=== PATIENT | female | born 1995 | race American Indian/Alaskan Native ===

== ENCOUNTER 2020-03-27 17:59 | Inpatient (IN) | payer MEDICAID, OTHER ==
[2020-03-27] MEDS ORDERED: Penicillin G Potassium 5,000,000 Unit Vial ONE (18:07)
[2020-03-27] MEDS ORDERED: Penicillin G Potassium 5 MILLUNITS in Sodium Chloride 0.9% 100 ML IV STA (18:14)
[2020-03-27] MEDS ORDERED: Betamethasone Acetate/Betamethasone Sod Phosphate 30 MG/5 ML MDV IM STA (18:14)
[2020-03-27] MEDS ORDERED: Misoprostol 400 MCG (4 X 100 MCG TAB) RECTAL PRN (18:16)
[2020-03-27] MEDS ORDERED: Lactated Ringers 1,000 ML IV ONE (18:16)
[2020-03-27] MEDS ORDERED: Ondansetron 4 MG/2 ML SDV IVPUSH PRN (18:16)
[2020-03-27] MEDS ORDERED: Sodium Chloride 0.9% 10 ML Syringe FLUSH PRN ×2 (18:16→19:22)
[2020-03-27] MEDS ORDERED: Lidocaine 1% 30 ML SDV INJECT PRN (18:16)
[2020-03-27] MEDS ORDERED: Carboprost Tromethamine 250 MCG/1 ML Amp IM PRN (18:16)
[2020-03-27] MEDS ORDERED: Tranexamic Acid 1,000 MG in Sodium Chloride 0.9% 100 ML IV PRN (18:16)
[2020-03-27] MEDS ORDERED: Methylergonovine 0.2 MG/1 ML Amp IM PRN (18:16)
[2020-03-27] MEDS ORDERED: Lactated Ringers 1,000 ML IV SCH (18:30)
[2020-03-27] MEDS ORDERED: Oxytocin/Normal Saline 30 UNIT/500 ML BAG IV SCH (18:30)
--- NOTE | 2020-03-27 19:09 | US ---
PROCEDURE INFORMATION: Exam: US , Limited Exam date and time: 03/27/2020 6:03 PM Age: 24 years old Clinical indication: Condition or disease; Lmp or gestational age (weeks): 35w; Other: PT in active labor; 2nd ; ; Additional info: No care. PT in active labor, provider needed presentation, placenta and growth TECHNIQUE: Imaging protocol: Real-time ultrasound of the maternal uterus with image documentation. Exam focused on the clinical indication. COMPARISON: No relevant prior studies available. FINDINGS: Gestation: Single live intrauterine fetus. Presentation: Cephalic Placenta: Placenta is posterior and appears intact. BIOMETRY: Estimated due date (AUA): 05/03/2020 Estimated weight: 2402 grams IMPRESSION: Single live intrauterine fetus with a sonographic gestational age of 34 weeks 5 days. CANDY is 05/03/2020. Please see above for additional findings.
[2020-03-27] MEDS ORDERED: Measles, Mumps & Rubella Vaccine 0.5 ML SDV SUBCUT ONE (19:22)
[2020-03-27] MEDS ORDERED: Zolpidem 5 MG Tab PO PRN (19:22)
[2020-03-27] MEDS ORDERED: Benzocaine/Menthol 20%-0.5% Spray 56 GM Canister TOP PRN (19:22)
[2020-03-27] MEDS ORDERED: Simethicone 80 MG Tab.Chew PO PRN (19:22)
[2020-03-27] MEDS ORDERED: Diphtheria,Pertussis(Acell),Tetanus Vaccine 0.5 ML SDV IM ONE (19:22)
[2020-03-27] MEDS ORDERED: Oxytocin 10 Units/1 ML SDV IM PRN (19:22)
[2020-03-27] MEDS: Acetaminophen 325 MG Tab PO PRN (19:56)
[2020-03-27] MEDS: Ibuprofen 800 MG Tab PO PRN (19:59)
[2020-03-27] MEDS: Docusate Sodium 100 MG Cap PO PRN (20:00)
[2020-03-28] MEDS: Ibuprofen 800 MG Tab PO PRN ×3 (05:06→21:33)
--- NOTE | 2020-03-28 07:58 | DEL ---
DATE: 03/27/2020 PREOPERATIVE DIAGNOSES: 1. Intrauterine , 34-5/7 weeks by ultrasound today with posterior placenta. 2. No care. 3. Positive urine drug screen for methamphetamines, amphetamines, and THC. 4. Not a transfer candidate. 5. Active labor. 6. Advanced cervical dilation being 7+ cm. 7. Group B Streptococcus unknown within 1 dose of penicillin given. 8. contractions. Betamethasone given x1 on date of admission. 9. Gestational thrombocytopenia suspected with platelets of 95,000. 10.-0-0-1. POSTOPERATIVE DIAGNOSES: 1. Intrauterine , 34-5/7 weeks by ultrasound today with posterior placenta, delivered. 2. No care. 3. Positive urine drug screen for methamphetamines, amphetamines, and THC. 4. Not a transfer candidate. 5. Active labor. 6. Advanced cervical dilation being 7+ cm. 7. Group B Streptococcus unknown within 1 dose of penicillin given. 8. contractions. Betamethasone given x1 on date of admission. 9. Gestational thrombocytopenia suspected with platelets of 95,000. 10.-0-0-1. PROCEDURE PERFORMED: Spontaneous vaginal delivery. RN DISEASE MANAGEMENT: Toribio Lawrence MS-4 ANESTHESIA/ANALGESIA: The patient did receive nitrox in the late first and second stage of labor. ESTIMATED BLOOD LOSS: 200 mL. FINDING: Male. score and weight pending. SUMMARY OF EVENTS: The patient is a 24-year-old, G2, P1-0-0-1, intrauterine at 34-5/7 weeks, with no care, presented to the hospital via ambulance with contractions. Stat ultrasound was done, revealed vertex presentation, posterior placenta, and around 34-5/7 weeks dates. Cervical exam reveals her to be 7+ cm. She was not felt to be a transfer candidate due to this, and no care. Labs were done, notable for positive urine drug screen for methamphetamines, amphetamines, and THC with platelets of 95,000. Other results are pending. The patient was subsequently admitted. IV was started. Monitoring ensued. The patient then felt the urge to push. I was called to the room. She was found to be near the second stage of labor. Toribio and Kate donned sterile gown and gloves, and the patient was found to be in the second stage of labor with urge to push. She subsequently pushed with contractions, and vertex was delivered in [place] presentation, followed by anterior-posterior shoulder as well as rest of the without difficulty. Mouth and nares were suctioned. Cords were doubly clamped and cut. Infant was brought to thenewborn team. Then, approximately 10 mL of cord blood was obtained for labs. Placenta then delivered with gentle cord traction, fundal massage. Perineum, vagina, and perirectal areas were then examined without any tears or lacerations. Mother and infant are currently stable at the time of dictation. [facility] /[id number]
[2020-03-28] MEDS: Prenatal Multivitamin with Calcium/Folic Acid/Iron Tab PO SCH (08:03)
[2020-03-28] MEDS: Ferrous Sulfate 325 MG Tab PO SCH (08:03)
[2020-03-28] MEDS: Docusate Sodium 100 MG Cap PO PRN ×2 (08:03→21:33)
--- NOTE | 2020-03-28 09:20 | HP ---
PATIENT IDENTIFICATION: Merary Ugalde is a 24-year-old, G2, P1-0-0-1 intrauterine at 34-5/7 weeks by ultrasound today with no care, who presents with contractions and active labor. HISTORY OF PRESENT ILLNESS: The patient states she thinks her last menstrual period was sometime in July, is very vague about it, but does state that she started having contractions on morning of admission on 03/27/2020, worsening over the last hour before presenting to the ER via ambulance. Describing contractions felt in the lower abdomen, radiating to the back, severe enough that she is breathing through them. Nothing seems to make them better. Time has made them worse. She is unsure if she has had some leaking over the last 12 to 24 hours. She does not note any spotting or bleeding. To put this in context, she had a delivery back on May 25, 2019 and notes did reveal that it appears that she was intoxicated and urine drug screen was positive for meth and THC at that time and had a baby girl via vacuum-assisted vaginal delivery. Records called for, reviewed as below, and supplemented by patient history. Labs today, white cell count 26.2, hemoglobin 11, platelets are 95,000. Urinalysis, 30 protein, moderate occult blood, small bilirubin, small leukocyte esterase. Pending is other, no care labs. OB HISTORY: On 05/25/2019, she had vacuum-assisted vaginal delivery yielding a female with scores of 4, 6, and 9 with a couple visits during that . Vacuum was applied for 13 minutes with 1 popoff. ALLERGIES: None. MEDICATIONS: None. PAST MEDICAL/PAST SURGICAL HISTORY: The patient denies any hospitalizations, surgeries, or chronic medical conditions. FAMILY HISTORY: Negative for anesthesia, bleeding problems, or defects. Does not know much else of her family history, stating she does not know. SOCIAL HISTORY: The patient states she lives in [place] with her boyfriend. Her daughter is not with her. She does smoke a couple cigarettes per day. Denies any alcohol, tobacco, or drug use after multiple questioning. REVIEW OF SYSTEMS: Quickly obtained and otherwise reviewed and felt to be contributory as per the above. OBJECTIVE: Vital Signs: Blood pressure 131/80, temp 98.1, heart rate 88, Appearance: Female, appears her stated age, breathing through contractions. Answering questions appropriately in between, sometimes appearing almost intoxicated when answering questions and somewhat vague with being a poor historian. HEENT: Head atraumatic. EOMs intact. PERRLA. No scleral icterus. No sore throat. Mucous membranes are moist. Neck: No obvious tenderness. Lungs: Clear to auscultation bilaterally. No increased work of breathing. Heart: S1, S2. Regular rate and rhythm. Abdomen: Gravid. Jonh's indeterminate. Nontender, nondistended. Bowel sounds positive. No organomegaly or obvious hernias. No rebound, rigidity, or guarding. Extremities: No peripheral edema. Deep tendon reflexes 2 to 3/4 bilaterally in extremities. Psychiatric: Mood and affect congruent. Judgment and insight intact. Skin: Without cyanosis, clubbing, or jaundice. LABORATORY DATA: Stat ultrasound was called done. Did reveal a single intrauterine of 34-5/7 weeks with posterior placenta well away from the cervical os. Vaginal exam after ultrasound revealed no previa, revealed to be 7 cm, 100% effaced, 0 to 1+ station, vertex suspected, bag of water felt. Pending is no care lab. Labs returned at this point in time did reveal a positive urine drug screen for methamphetamine, amphetamine, and marijuana. heart tones: Acceleration noted with vaginal exam. heart tones in the 140s to 150s range. Tocometer reveals contractions every minute and half on average. ASSESSMENT/PLAN: 1. Intrauterine at 34-5/7 weeks by ultrasound today with posterior placenta. 2. No care. 3. Positive urine drug screen for methamphetamine, amphetamine, and THC. 4. Gestational thrombocytopenia/thrombocytopenia with platelets of 95,000. 5. Active labor upon admission. 6. Advanced cervical dilation being 7+ cm upon admission. 7. Not a transfer candidate due to active labor, advanced cervical dilation. 8. Group B Streptococcus unknown (penicillin has been started, first dose has already been given). 9. contractions with labor as above. Betamethasone IM was given x1. 10.G2, P1-0-0-1. PLAN: The patient has been admitted. Please see orders for further details. No care. Labs have been drawn. Ultrasound was reviewed with tech and was there present when this was being done as well. The findings as above. Final reading is pending. At current time of dictation, penicillin has been given, betamethasone has been given. The patient continues to breathe through contractions. We will continue to follow clinically and closely at this point in time and anticipate vaginal delivery near future. I did discuss with patient potential need for NICU, and at this point in time, we will continue to follow clinically and closely, deliver and determine course thereafter as near term on ultrasound. The patient understands and agrees with above treatment plan. [facility] /[id number]
--- NOTE | 2020-03-28 09:37 | PN ---
DATE: 03/28/2020 day #1, status post spontaneous vaginal delivery. SUBJECTIVE: The patient is tolerating p.o., is ambulating, urinating, and passing flatus. She denies any chest pain, shortness of breath, cough, cold, runny nose symptoms, problems with bowel or bladder habits. OBJECTIVE: Vital Signs: Temperature 97.5, heart rate 64, blood pressure 125/70, respiratory rate 18. Lungs: Clear to auscultation bilaterally. Heart: S1 and S2. Regular rate and rhythm. Abdomen: Firm uterus. -1 below umbilicus. Extremities: No peripheral edema. No calf pain. LABORATORY DATA: White cell count 33,000, hemoglobin 10.8, compared to predelivery hemoglobin of 11, and platelets up from 95,000 to 252,000. ASSESSMENT AND PLAN: 1. day #1, status post spontaneous vaginal delivery with no care. 2. Leukocytosis. Yesterday's white cell count was 26.2. Today, it is 33.3. I did discuss this with the patient. We will do repeat labs tomorrow with a CBC with manual diff, peripheral blood smear, and A CMP to look for potential causes as well as this may be related to her drug use with positive methamphetamine, amphetamine, and THC on drug screen, as well as demargination with recent delivery. We will continue to follow clinically and closely. I did discuss wit the patient the importance of following this up and they will make an appointment for her on Tuesday with her baby with me in the clinic to evaluate further if this persists. No obvious sources or signs of infection are noted at this point in time. The patient is stable. We will continue to follow closely. 3. Gestational thrombocytopenia that appears to be transient in nature, 252,000 platelets today. We will follow closely at this point in time. PLAN: Cloth Measurer will be consulted. The patient potentially to go home tomorrow if there are no concerns with labs or other concerns. Baby may be staying longer based on prematurity. I did discuss with the patient. Dr. Ovalles and Dr. Cody covering in my absence over the weekend. [facility] /[id number]
[2020-03-29] MEDS: Ibuprofen 800 MG Tab PO PRN ×3 (05:36→23:33)
[2020-03-29 07:13] LABS: ANION GAP 14.2 mEq/L (7-13); CHLORIDE,CL 105 mmol/L (98-107); SODIUM,NA 139 mmol/L (136-145)
[2020-03-29] MEDS: Docusate Sodium 100 MG Cap PO PRN ×2 (08:47→19:53)
[2020-03-29] MEDS: Prenatal Multivitamin with Calcium/Folic Acid/Iron Tab PO SCH (08:47)
[2020-03-29] MEDS: Ferrous Sulfate 325 MG Tab PO SCH (08:47)
[2020-03-29] MEDS: cefTRIAXone 1 GM in Sodium Chloride 0.9% 50 ML IV SCH (08:48)
[2020-03-29] MEDS ORDERED: FLU Vacc QS2020-21 36MOS UP/PF 60 MCG/0.5 ML Syringe IM ONE (10:00)
--- NOTE | 2020-03-29 10:11 | PN ---
DATE: 03/29/2020 SUBJECTIVE: day #2. Reports that she is doing well. Ambulating, tolerating regular diet. No chest pain or shortness of breath. Vaginal bleeding has basically stopped and she has no acute concerns. She denies any fever. She denies any symptoms of urinary tract infection even prior to admission. Reports that she did have some low back pain in the sacral area, but not around where the kidneys are located. She cannot think of any other sources of infection. Reports that she smokes marijuana, but thinks that some of the methamphetamine that showed up in her drug screen was due to contact with several family and friends who use methamphetamine actively and denies intravenous use of the drug recently. No signs of skin infection have been seen so far. She is reporting a history of easy bruising, but unaware of any chronic problems with low platelets and has not had labs done outside of really. Reports that she did have care because she did not realize how far along she was with this . Reports that her last child was born about a month early and is in the custody of the father's mother, but she does have visitations with her. Otherwise, willing to get the influenza vaccine and has not really understood all of the lab tests and the results that have been done so far this hospitalization. OBJECTIVE: General: Well-appearing 24-year-old female, appears her stated age. Vital Signs: Temperature is 97.2, and she has been afebrile throughout the hospital stay. Pulse of 59, blood pressure 117/70, respiratory rate of 18, and O2 saturations 100% on room air. Heart: Regular without murmur. Lungs: Clear to auscultation bilaterally. Abdomen: Soft and nontender. Fundus is firm and below the umbilicus and bowel sounds are positive in all 4 quadrants. Extremities: No edema, erythema or tenderness noted. LABORATORY DATA: White blood cell count is down to 24.1 and it had peaked yesterday at 33.3. Her hemoglobin is down to 9.5 from at admission of 11.0. Platelets are at 120. The lowest has been 95, highest has been 252. Chemistry panel: Carbon dioxide of 14.2, calcium 8.2, bilirubin 0.1, AST 11, alkaline phosphatase 197, total protein 6.3, albumin 1.6, otherwise within normal limits. Urinalysis only had 5 to 10 wbc's, but we have a preliminary urine culture showing gram-negative rods. Urine drug screen positive for amphetamine, methamphetamine and THC. Negative for alcohol. HIV negative. Rubella nonimmune. COVID test negative. Blood cultures obtained prior to starting antibiotics today and not resulted. Group B strep preliminary is positive and wet prep was remarkable for rare clue cells. ASSESSMENT: 1. day #2. 2. Urinary tract infection. 3. Status post vaginal delivery. 4. Thrombocytopenia, unclear if chronic or gestational. 5. Positive drug screen for methamphetamine and THC. 6. Group B strep positive, treated in labor. 7. Closely spaced . 8. Flu vaccine needed. 9. High-risk social situation for potential ongoing drug use and baby will be removed from her care until she can provide a safe environment and prove that she has stopped using substances. PLAN: Discussed with her at length her various lab results. She will get an MMR vaccine because she is rubella nonimmune. She will get a flu vaccine because it is the season. Discussed with her need for followup as an outpatient for the thrombocytopenia to make sure that resolved and it truly is gestational. Stressed with her the importance of care for numerous factors; in her case, specifically for identification and proper management of gestational thrombocytopenia. Also, risk of recurrent delivery and the need for progesterone to help prevent delivery for future pregnancies. Also, discussed with her the various social programs that are available to help her with transportation, finances, dietary needs, etc. All of her questions were answered and she is happy with the plan. At this time, she has been given 1 dose of IV Rocephin today and I plan on repeating another dose tomorrow. Should her IV fall out, we can leave it out and I would administer her Rocephin intramuscularly tomorrow as long as she is continuing to take oral fluids well. The patient will plan on appropriate contraception as an outpatient. [facility] /[id number]
[2020-03-29] MEDS: Acetaminophen 325 MG Tab PO PRN (19:53)
[2020-03-30] MEDS: Acetaminophen 325 MG Tab PO PRN (05:52)
[2020-03-30] MEDS: cefTRIAXone 1 GM in Sodium Chloride 0.9% 50 ML IV SCH (08:33)
[2020-03-30] MEDS: Docusate Sodium 100 MG Cap PO PRN (08:33)
[2020-03-30] MEDS: Prenatal Multivitamin with Calcium/Folic Acid/Iron Tab PO SCH (08:33)
[2020-03-30] MEDS: Ibuprofen 800 MG Tab PO PRN (08:33)
[2020-03-30] MEDS: Ferrous Sulfate 325 MG Tab PO SCH (08:33)
--- NOTE | 2020-03-30 13:20 | DISCH ---
ADMITTING DIAGNOSES: 1. A 34-5/7 weeks' intrauterine based on ultrasound performed on the day of admission. 2. 2, para 1-0-0-1. 3. No care. 4. Urine drug screen positive for methamphetamine and THC. 5. Thrombocytopenia. 6. Group B strep status unknown. 7. labor with advanced cervical dilatation of 7 cm on admission. 8. Anemia of . 9. Leukocytosis. DISCHARGE DIAGNOSES: 1. A 34-5/7 weeks' intrauterine based on ultrasound performed on the day of admission. 2. 2, now para 1-1-0-2. 3. No care. 4. Urine drug screen positive for methamphetamine and THC. 5. Thrombocytopenia. 6. labor with advanced cervical dilatation of 7 cm on admission. 7. Anemia of . 8. Leukocytosis. 9. spontaneous vaginal delivery, uncomplicated. 10.Urinary tract infection with Escherichia coli on urine culture. 11.Rubella nonimmune. 12.Group B strep positive. 13.Hypoalbuminemia. 14.Anemia of blood loss. BRIEF HISTORY: A 24-year-old female with no care who presented to the hospital with advanced cervical dilatation of 7 cm and regular contractions. They did start her on penicillin for antibiotics approximately 1 hour prior to delivery, and her bag of water was ruptured 3 minutes [address] to delivery. Dr. Sales managed her labor course and reported it was unremarkable. She delivered a baby boy with scores of 9 and 9, weight 2280 g or 5 pounds 0 ounces, with a length of 17-1/4 inches. The baby had some transient tachypnea which resolved very quickly, and he was able to stay here at our facility and not be transferred out. Her testing showed results as listed above under her diagnoses, but the HIV test eventually returned negative; rubella, she is nonimmune; COVID test is negative. Her initial white count was 26.2, hemoglobin of 11, and platelets of 95. Albumin of 1.6. HOSPITAL COURSE: After delivery, the patient did well. She had bleeding well controlled. No chest pain. No shortness of breath. Denied any focal symptoms for any infection. Urine cultures and repeat CBCs were performed. Urinalysis was concerning for UTI, and urine culture came back with gram-negative rods eventually proven to be E coli, and she was started on Rocephin for antibiotics and received that IV x2 doses prior to discharge, and her white blood cell count came down to 15.5. Final hemoglobin of 10.1. Final platelets of 153. DISCHARGE CONDITION: Good. PHYSICAL EXAMINATION: VITAL SIGNS: Her temperature is 97.7, and she never had a fever while she was in the hospital; pulse of 94; blood pressure 114/72; respiratory rate of 16; and O2 saturations 97% on room air. HEART: Regular without murmur. LUNGS: Clear to auscultation bilaterally. ABDOMEN: Soft, nontender. Fundus is firm and below the umbilicus. She does not have any CVA tenderness. EXTREMITIES: No edema, erythema, or tenderness noted. LABORATORY DATA: pertinent positives and negatives as listed above. DISPOSITION: Home. MEDICATIONS: 1. Keflex 500 mg 4 times daily for an additional 5 days. 2. Ibuprofen 800 mg every 8 hours as needed for pain. 3. Tylenol 650 mg every 6 hours as needed for pain. 4. Colace 100 mg twice daily as needed for constipation. 5. Iron 325 mg twice daily for 1 month. 6. Vitamin C 500 mg twice daily for 1 month. FOLLOWUP: The patient has an appointment to see Dr. Sales in the office tomorrow to make sure things are going well. At this time, her baby will be placed in Machine Sign Writer custody and remain here in the hospital, and she is anticipating proceeding with followup drug screen to maintain sobriety and hoping to get her baby back. It is noted that she does not have custody of her first child, and that child stays with the paternal grandmother of the child. INSTRUCTIONS: The patient is instructed to maintain sobriety. She should watch for any signs or symptoms of infection such as fevers, chills, or foul-smelling drainage or discharge. She needs to monitor her bleeding and for signs or symptoms of depression. She is to return to the hospital or clinic if any problems should arise. All of her questions were answered. [facility] /[id number]
[2020-03-31 12:46] LABS: C.TRACHOMATIS BY TMA Negative (Negative); N.GONORRHOEAE BY TMA Negative (Negative)
== END 2020-03-30 14:50 | disposition home or self-care (01) | DRG 805 ==
LOC: DL.OBCHECK 17:59 → DL.OB 18:16 → OBSVTOIN 19:09
PROVIDERS: ADMIT Family Medicine; ATTEND Family Medicine
PROC: 10E0XZZ Delivery of Products of Conception, External Approach (ICD-10-PCS; principal; 2020-03-27)
DX: O60.14X0 Preterm labor third trimester with preterm delivery third trimester, not applicable or unspecified (principal); O75.3 Other infection during labor; Z37.0 Single live birth; O34.33 Maternal care for cervical incompetence, third trimester; O99.12 Other diseases of the blood and blood-forming organs and certain disorders involving the immune mechanism complicating childbirth; O99.324 Drug use complicating childbirth; D69.6 Thrombocytopenia, unspecified; F17.210 Nicotine dependence, cigarettes, uncomplicated; F15.90 Other stimulant use, unspecified, uncomplicated; F12.90 Cannabis use, unspecified, uncomplicated; O99.02 Anemia complicating childbirth; D72.829 Elevated white blood cell count, unspecified; B96.20 Unspecified Escherichia coli [E. coli] as the cause of diseases classified elsewhere; O99.824 Streptococcus B carrier state complicating childbirth; E88.09 Other disorders of plasma-protein metabolism, not elsewhere classified; D50.0 Iron deficiency anemia secondary to blood loss (chronic); Z20.828 Contact with and (suspected) exposure to other viral communicable diseases; Z3A.34 34 weeks gestation of pregnancy
CPT/HCPCS: 36415; 59409; 76815; 80053; 80305-QW; 80307; 81001; 85007; 85025; 85027; 86592; 86762; 86803; 86850; 86900; 86901; 87040; 87077; 87081; 87086; 87088; 87186; 87210; 87340; 87389; 87491; 87591; 90471; 90686; 90707; 90715; A9270-GY; J0696; J0702; J2540; J2590; J7050; J7120; U0002

== ENCOUNTER 2021-04-25 05:35 | Inpatient (IN) | payer MEDICAID, OTHER ==
[2021-04-25] MEDS ORDERED: Penicillin G Potassium 5,000,000 Unit Vial ONE (05:55)
[2021-04-25] MEDS ORDERED: Methylergonovine 0.2 MG/1 ML Amp IM PRN (06:21)
[2021-04-25] MEDS ORDERED: Carboprost Tromethamine 250 MCG/1 ML Amp IM PRN ×2 (06:21→06:40)
[2021-04-25] MEDS ORDERED: Lactated Ringers 1,000 ML IV ONE (06:21)
[2021-04-25] MEDS ORDERED: Ondansetron 4 MG/2 ML SDV IVPUSH PRN (06:21)
[2021-04-25] MEDS ORDERED: Misoprostol 400 MCG (4 X 100 MCG TAB) RECTAL PRN ×2 (06:21→06:40)
[2021-04-25] MEDS ORDERED: Lidocaine 1% 30 ML SDV INJECT PRN (06:21)
[2021-04-25] MEDS ORDERED: Sodium Chloride 0.9% 10 ML Syringe FLUSH PRN ×2 (06:21→06:40)
[2021-04-25] MEDS ORDERED: Tranexamic Acid 1,000 MG in Sodium Chloride 0.9% 100 ML IV PRN ×2 (06:21→06:40)
[2021-04-25] MEDS ORDERED: Acetaminophen 325 MG Tab PO PRN ×2 (06:21→06:40)
[2021-04-25] MEDS ORDERED: Nalbuphine 10 MG/1 ML Vial ONE (06:29)
[2021-04-25] MEDS ORDERED: Lactated Ringers 1,000 ML IV SCH (06:30)
[2021-04-25] MEDS ORDERED: Docusate Sodium 100 MG Cap PO PRN (06:38)
[2021-04-25] MEDS ORDERED: Ibuprofen 800 MG Tab PO PRN (06:38)
[2021-04-25] MEDS ORDERED: Benzocaine/Menthol 20%-0.5% Spray 78 GM Cannister TOP PRN (06:40)
[2021-04-25] MEDS ORDERED: Simethicone 80 MG Tab.Chew PO PRN (06:40)
[2021-04-25] MEDS ORDERED: Oxytocin 10 Units/1 ML SDV IM PRN (06:40)
[2021-04-25] MEDS ORDERED: Zolpidem 5 MG Tab PO PRN (06:40)
--- NOTE | 2021-04-25 07:12 | US ---
PROCEDURE INFORMATION: Exam: US , Limited Exam date and time: 04/25/2021 6:18 AM Age: 25 years old Clinical indication: Lmp or gestational age (in weeks): 33 wks, 6 days; Labor and delivery abnormalities; Pre-term labor; ; Additional info: Contractions TECHNIQUE: Imaging protocol: Real-time ultrasound of the maternal uterus with image documentation. Exam focused on the clinical indication. COMPARISON: No relevant prior studies available. FINDINGS: Gestation: Single intrauterine gestation. presentation: Cephalic. heart rate: 146 bpm Placenta: Anterior. No previa. BIOMETRY: Gestational age (AUA): 33 weeks 6 days Estimated due date (AUA): 06/07/21 Estimated weight: 2326 g (7 percentile) Biparietal diameter: 8.4 cm (33 weeks 6 day(s)) Head circumference: 30.1 cm (33 weeks 3 day(s)) Abdominal circumference: 30.5 cm (34 weeks 3 day(s)) Femur length: 6.5 cm (33 weeks 4 day(s)) biometric ratios: Head/abdomen circumference ratio 0.99 (range 0.93 to 1.11) IMPRESSION: Single viable intrauterine gestation with estimated gestational age of 33 weeks 6 days, based on measurements from this ultrasound. Estimated weight is at 7th percentile based on last menstrual period.
--- NOTE | 2021-04-25 07:20 | PCM.LDHP ---
<John Whittaker - Last Filed: 04/25/21 07:23> L&D History of Present Illness - General Admit Problem/Dx: Patient Status Order with Admit Dx/Problem 04/25/21 06:22 Patient Status [ADT] Routine Admission Diagnosis/Problem Admission Diagnosis/Problem Labor without complication - Related Data Allergies/Adverse Reactions: Allergies Allergy/AdvReac Type Severity Reaction Status Date / Time No Known Allergies Allergy Verified 04/25/21 08:29 Home Medications: Home Meds #103/Iron Fumarate/Fa [ ] 1 tab PO DAILY 05/24/19 [History] Acetaminophen [Tylenol] 650 mg PO Q4H PRN tablet 03/30/20 [Rx] Docusate Sodium [Colace] 100 mg PO BID PRN cap 03/30/20 [Rx] Ferrous Sulfate 325 mg PO WITHBREAKFAST tablet 03/30/20 [Rx] Ibuprofen [Motrin] 800 mg PO Q8H PRN tablet 03/30/20 [Rx] - Patient Data Lab Results Last 24 hrs: Laboratory Results - last 24 hr 04/25/21 04/25/21 04/25/21 Range/Units 05:50 05:50 05:50 WBC 6.5 (5.0-10.0) 10^3/uL RBC 4.62 (4.2-5.4) 10^6/uL Hgb 13.2 D (12.0-16.0) g/dL Hct 40.2 (37.0-47.0) % MCV 87.0 (80-100) fL MCH 28.6 (27.0-34.0) pg MCHC 32.8 L (33.0-35.0) g/dL Plt Count 213 (150-450) 10^3/uL BUN 11 (7-18) mg/dL Creatinine 0.82 (0.55-1.02) mg/dL Est Cr Clr Drug Dosing TNP Estimated GFR (MDRD) > 60 Uric Acid 4.7 (2.6-6.0) mg/dL AST 34 (15-37) U/L ALT 33 (14-59) U/L Lactate Dehydrogenase (81-234) U/L HIV-1 Antibody (NONREACTIVE) HIV-2 Antibody (NONREACTIVE) HIV P24 Antigen (NONREACTIVE) SARS-CoV-2 RNA (JENNIFER) (NEGATIVE) Blood Type O POSITIVE Gel Antibody Screen Negative 04/25/21 04/25/21 Range/Units 05:50 06:22 WBC (5.0-10.0) 10^3/uL RBC (4.2-5.4) 10^6/uL Hgb (12.0-16.0) g/dL Hct (37.0-47.0) % MCV (80-100) fL MCH (27.0-34.0) pg MCHC (33.0-35.0) g/dL Plt Count (150-450) 10^3/uL BUN (7-18) mg/dL Creatinine (0.55-1.02) mg/dL Est Cr Clr Drug Dosing Estimated GFR (MDRD) Uric Acid (2.6-6.0) mg/dL AST (15-37) U/L ALT (14-59) U/L Lactate Dehydrogenase 210 (81-234) U/L HIV-1 Antibody Non-reactive (NONREACTIVE) HIV-2 Antibody Non-reactive (NONREACTIVE) HIV P24 Antigen Non-reactive (NONREACTIVE) SARS-CoV-2 RNA (JENNIFER) Positive H (NEGATIVE) Blood Type Gel Antibody Screen Result Diagrams: 04/25/21 05:50 04/25/21 05:50 Problem List Initiated/Reviewed/Updated: Yes Orders Last 24hrs: Active Orders 24 hr Category Date Time Status Patient Status [ADT] Routine ADT 04/25/21 06:22 Active Communication Order [RC] ASDIRECTED Care 04/25/21 06:22 Active Heart Rate [RC] CONTINUOUS Care 04/25/21 06:22 Active Heart Tones [RC] PER UNIT ROUTINE Care 04/25/21 06:22 Active Notify Provider Vital Signs OB [RC] ASDIRECTED Care 04/25/21 06:22 Active Notify Provider [RC] PRN Care 04/25/21 06:22 Active OB Check [OM.PC] PER UNIT ROUTINE Care 04/25/21 06:22 Ordered POC Labs [RC] ASDIRECTED Care 04/25/21 06:22 Active Pump Management, Intrathecal [RC] ASDIRECTED Care 04/25/21 06:35 Active Up ad Phoebe [RC] ASDIRECTED Care 04/25/21 06:22 Active Vital Signs [RC] 08,20 Care 04/25/21 06:22 Active Regular Diet [DIET] Diet 04/25/21 Dinner Active Regular Diet [DIET] Diet 04/25/21 Lunch Active CBC W/O DIFF,HEMOGRAM [HEME] Routine Lab 04/26/21 06:00 Ordered CULTURE GROUP B STREP [RM] Routine Lab 04/25/21 06:22 Ordered DRUG SCREEN URINE BIORAD [URCHEM] Routine Lab 04/25/21 06:22 Ordered HBSAG SCREEN [REF] Urgent Lab 04/25/21 05:50 Received HEP C VIRUS AB [REF] Urgent Lab 04/25/21 05:50 Received MISC TEST Routine Lab 04/25/21 06:22 Ordered PROTEIN/CREATININE RATIO,URINE [URCHEM] Routine Lab 04/25/21 06:22 Ordered RPR (SYPHILIS SERO) W/ RFLX [REF] Routine Lab 04/25/21 05:50 Received RUBELLA ANTIBODY, IGG [REF] Routine Lab 04/25/21 05:50 Received UA RFX LILLIAN AND CULT IF INDIC [URIN] Routine Lab 04/25/21 06:22 Ordered Acetaminophen [TylenoL] Med 04/25/21 06:38 Active 650 mg PO Q4H PRN Benzocaine/Menthol [Dermoplast Pain Relief 20%-0.5% Med 04/25/21 06:40 Active Carpenter] See Dose Instructions TOP Q4H PRN Carboprost Tromethamine [Hemabate DS] Med 04/25/21 06:40 Active 250 mcg IM ASDIRECTED PRN Docusate Sodium [Colace] Med 04/25/21 06:40 Active 100 mg PO BID PRN Ferrous Sulfate Med 04/25/21 08:00 Active 325 mg PO TIDMEALS Ibuprofen [Motrin] Med 04/25/21 06:40 Active 800 mg PO Q8H PRN Lactated Ringers [Ringers, Lactated] 1,000 ml Med 04/25/21 06:30 Active IV ASDIRECTED Lactated Ringers [Ringers, Lactated] 1,000 ml Med 04/25/21 06:21 Active IV BOLUS Lidocaine 1% [Xylocaine-MPF 1%] Med 04/25/21 06:21 Active 30 ml INJECT ASDIRECTED PRN Methylergonovine [Methergine] Med 04/25/21 06:21 Active 0.2 mg IM ASDIRECTED PRN Ondansetron [Zofran] Med 04/25/21 06:21 Active 4 mg IVPUSH Q4H PRN Oxytocin [Pitocin] Med 04/25/21 06:40 Active 10 unit IM ONETIME PRN Oxytocin/Normal Saline [Pitocin in NS 30 UNIT/500 ML] Med 04/25/21 06:30 A ctive 30 unit in 500 ml IV TITRATE Vit with Ca/FA/Iron [ Plus Iron] Med 04/25/21 09:00 Active 1 each PO DAILY Simethicone Med 04/25/21 06:40 Active 80 mg PO Q4H PRN Sodium Chloride 0.9% [Saline Flush] Med 04/25/21 06:40 Active 10 ml FLUSH ASDIRECTED PRN Tranexamic Acid [Cyklokapron] 1,000 mg Med 04/25/21 06:40 Active Sodium Chloride 0.9% [Normal Saline] 100 ml IV ONETIME Zolpidem [Ambien] Med 04/25/21 06:40 Active 5 mg PO BEDTIME PRN miSOPROStoL [Cytotec] Med 04/25/21 06:40 Active 1,000 mcg RECTAL ONETIME PRN miSOPROStoL [Cytotec] Med 04/25/21 06:21 Active 800 mcg RECTAL ASDIRECTED PRN Assess Lochia [WOMSER] Per Unit Routine Oth 04/25/21 06:40 Ordered Assess Uterine Involution [WOMSER] Per Unit Routine Oth 04/25/21 06:40 Ordered Breast Pump [WOMSER] Per Unit Routine Oth 04/25/21 06:40 Ordered Ice Therapy [OM.PC] Per Unit Routine Oth 04/25/21 06:40 Ordered Perineal Care [OM.PC] Per Unit Routine Oth 04/25/21 06:40 Ordered Saline Lock Insert [OM.PC] Routine Oth 04/25/21 06:22 Ordered Saline Lock Insert [OM.PC] Urgent Oth 04/25/21 06:40 Ordered Sitz Bath [OM.PC] Per Unit Routine Oth 04/25/21 06:40 Ordered Resuscitation Status Routine Resus Stat 04/25/21 06:21 Ordered Medication Orders Acetaminophen (Acetaminophen 325 Mg Tab) 650 mg PO Q4H PRN PRN Reason: Pain (Mild 1-3) and fever Benzocaine/Menthol (Benzocaine/Menthol 20%-0.5% Carpenter 78 Gm Cannister) 0 gm TOP Q4H PRN PRN Reason: Perineal comfort measures Carboprost Tromethamine (Carboprost Tromethamine 250 Mcg/1 Ml Amp) 250 mcg IM ASDIRECTED PRN PRN Reason: Excessive vaginal bleeding Docusate Sodium (Docusate Sodium 100 Mg Cap) 100 mg PO BID PRN PRN Reason: Constipation Ferrous Sulfate (Ferrous Sulfate 325 Mg Tab) 325 mg PO TIDMEALS PARADISE Lactated Ringer's (Ringers, Lactated) 1,000 mls @ 125 mls/hr IV BOLUS ONE Stop: 04/25/21 14:20 Lactated Ringer's (Ringers, Lactated) 1,000 mls @ 125 mls/hr IV ASDIRECTED PARADISE Oxytocin/Sodium Chloride (Pitocin In Ns 30 Unit/500 Ml) 30 unit in 500 mls @ 2 mls/hr IV TITRATE PARADISE; Protocol Tranexamic Acid 1,000 mg/ (Sodium Chloride) 110 mls @ 660 mls/hr IV ONETIME PRN PRN Reason: Bleeding Ibuprofen (Ibuprofen 800 Mg Tab) 800 mg PO Q8H PRN PRN Reason: Cramping Lidocaine HCl (Lidocaine 1% 30 Ml Sdv) 30 ml INJECT ASDIRECTED PRN PRN Reason: Perineal Repair Methylergonovine Maleate (Methylergonovine 0.2 Mg/1 Ml Amp) 0.2 mg IM ASDIRECTED PRN PRN Reason: Hemorrhage Misoprostol (Misoprostol 400 Mcg (4 X 100 Mcg Tab)) 800 mcg RECTAL ASDIRECTED PRN PRN Reason: Hemorrhage Misoprostol (Misoprostol 400 Mcg (4 X 100 Mcg Tab)) 1,000 mcg RECTAL ONETIME PRN PRN Reason: Hemorrhage Ondansetron HCl (Ondansetron 4 Mg/2 Ml Sdv) 4 mg IVPUSH Q4H PRN PRN Reason: Nausea/Vomiting Oxytocin (Oxytocin 10 Units/1 Ml Sdv) 10 unit IM ONETIME PRN PRN Reason: Bleeding Prenat Multivit/[place]/Iron/Folic Ac ( Multivitamin With Calcium/Folic Acid/Iron Tab) 1 each PO DAILY [facility] Simethicone (Simethicone 80 Mg Tab.Chew) 80 mg PO Q4H PRN PRN Reason: Gas Sodium Chloride (Sodium Chloride 0.9% 10 Ml Syringe) 10 ml FLUSH ASDIRECTED PRN PRN Reason: Keep Vein Open Zolpidem Tartrate (Zolpidem 5 Mg Tab) 5 mg PO BEDTIME PRN PRN Reason: Insomnia Attestation - Resident - Attestation Statement Attestation Statement: I saw and evaluated the patient. Discussed with resident and agree with residents findings and plan as documented in the residents note. <Mechelle Stover - Last Filed: 04/25/21 14:53> L&D History of Present Illness - General Date of Service: 04/25/21 Admit Problem/Dx: CC: Labor HPI: 25yo presents with contractions and abdominal pain that started this morning at 4:30am, woke her from sleep. These have become more regular and frequent. She reports an CANDY 05/21/2021 from a 20 week ultrasound, placing her at 36w3d. No vaginal bleeding or loss of fluid this morning. She admits to marijuana and Tobacco/cigarette use, denies other drug use. Past records show UDS positive methamphetamines/amphetamines in prior pregnancies. Patient does not have custody of her two older children. care of one visit at [facility] and one ultrasound appointment. labs have been drawn. COVID positive. Patient reports cough and fatigue two weeks ago. OB HISTORY: G3 current, < 3 visits G2 03/27/2020. Pre-eclampsia. Male, 2280g. at 34-5/7weeks based on day of delivery ultrasound. THC/methamphetamine positive UDS. GBS positive. G1 05/25/2019. Female. Vacuum assisted vaginal delivery. THC/Methamphetamine positive UDS. ALLERGIES: None MEDICATIONS: vitamin with iron PAST MEDICAL/PAST SURGICAL HISTORY: Dental surgery at age 18. Patient denies prior hospitalizations other than Labor and Delivery FAMILY HISTORY: Not known to patient. Per old records, denies bleeding problems, defects, or reactions to anesthesia. SOCIAL HISTORY: Lives in [place] with Father of Baby/Partner Cliff Garza, this is their 3rd child together. The couple lives with Patients brother. Gini dengrochelle reports her children are in [place]. Old records note Paternal grandmother had custody of the oldest child. REVIEW OF SYSTEMS: Quickly obtained and otherwise reviewed and felt to be contributory as per the above. OBJECTIVE: VITALS: 140/82, HR 56, RR 16, on room air. 97.6F. 5 feet, 1 inch. 130lbs. APPERANCE: Female, appears stated age, Crying through contractions. Answering questions in between contractions. HEENT: Head atraumatic. EOM intact. No scleral icterus. Mucous membranes moist. NECK: Trachea midline LUNGS: Clear to auscultation bilaterally, no rhonchi or wheezing. No increased work of breathing. HEART: S1, S2. Regular rate and rhythm. ABDOMEN: Gravid, measures 33cm. Non-tender. EXTREMITIES: No peripheral edema. PSYCHIATRIC: Subdued affect, limited evaluation due to pain SKIN: No cyanosis or clubbing. Needle tracts in antecubital fossa bilaterally Cervix: 5cm dilation LABORATORY DATA: Hgb 13.2, Plt 213. WBC 6.5. Cr. 0.82. AST/ALT non-elevated. COVID positive. MONITORING: Category 1. heart tones 140-150s. Nathanael every 1-2 minutes ASSESSMENT: 1. Intrauterine reported 36w2d, exam concerning for Gestational age <35 weeks or IGUR. 2. labor 3. No care 4. History of Pre-eclampsia. 5. Active labor on admission 6. Group B streptococcus unknown with hx of positive PLAN: Patient was admitted and after positive COVID test was moved to negative pressure room. Patient and partner informed they were to stay in the room at all times until time of discharge. Ultrasound ordered, Average gestational age of 33w6d. No Care labs ordered and pending. Patient has not urinated. Penicillin running. With report of GA > 36 weeks and imminent delivery, did not administer Betamethasone. Mechelle Stover MD PGY3 04/25/21 14:51 Source of Information: Patient, Family (Partner/FOB Cliff Garza ), Old Records - History of Present Illness Introduction:: CC: Labor HPI: 25yo presents with contractions and abdominal pain that started this morning at 4:30am, woke her from sleep. These have become more regular and frequent. She reports an CANDY 05/21/2021 from a 20 week ultrasound, placing her at 36w3d. No vaginal bleeding or loss of fluid this morning. She admits to marijuana and Tobacco/cigarette use, denies other drug use. Past records show UDS positive methamphetamines/amphetamines in prior pregnancies. Patient does not have custody of her two older children. care of one visit at [facility] and one ultrasound appointment. labs have been drawn. COVID positive. Patient reports cough and fatigue two weeks ago. OB HISTORY: G3 current, < 3 visits G2 03/27/2020. Pre-eclampsia. Male, 2280g. at 34-5/7weeks based on day of delivery ultrasound. THC/methamphetamine positive UDS. GBS positive. G1 05/25/2019. Female. Vacuum assisted vaginal delivery. THC/Methamphetamine positive UDS. ALLERGIES: None MEDICATIONS: vitamin with iron PAST MEDICAL/PAST SURGICAL HISTORY: Dental surgery at age 18. Patient denies prior hospitalizations other than Labor and Delivery FAMILY HISTORY: Not known to patient. Per old records, denies bleeding problems, defects, or reactions to anesthesia. SOCIAL HISTORY: Lives in [place] with Father of Baby/Partner Cliff Garza, this is their 3rd child together. The couple lives with Patients brother. Patient reports her children are in [place]. Old records note Paternal grandmother had custody of the oldest child. REVIEW OF SYSTEMS: Quickly obtained and otherwise reviewed and felt to be contributory as per the above. OBJECTIVE: VITALS: 140/82, HR 56, RR 16, on room air. 97.6F. 5 feet, 1 inch. 130lbs. APPERANCE: Female, appears stated age, Crying through contractions. Answering qu estions in between contractions. HEENT: Head atraumatic. EOM intact. No scleral icterus. Mucous membranes moist. NECK: Trachea midline LUNGS: Clear to auscultation bilaterally, no rhonchi or wheezing. No increased work of breathing. HEART: S1, S2. Regular rate and rhythm. ABDOMEN: Gravid, measures 33cm. Non-tender. EXTREMITIES: No peripheral edema. PSYCHIATRIC: Subdued affect, limited evaluation due to pain SKIN: No cyanosis or clubbing. Needle tracts in antecubital fossa bilaterally Cervix: 5cm dilation LABORATORY DATA: Hgb 13.2, Plt 213. WBC 6.5. Cr. 0.82. AST/ALT non-elevated. COVID positive. MONITORING: Category 1. heart tones 140-150s. Nathanael every 1-2 minutes ASSESSMENT: 1. Intrauterine reported 36w2d, exam concerning for Gestational age <35 weeks or IGUR. 2. labor 3. No care 4. History of Pre-eclampsia. 5. Active labor on admission 6. Group B streptococcus unknown with hx of positive PLAN: Patient was admitted and after positive COVID test was moved to negative pressure room. Patient and partner informed they were to stay in the room at all times until time of discharge. Ultrasound ordered, Average gestational age of 33w6d. No Care labs ordered and pending. Patient has not urinated. Penicillin running. With report of GA > 36 weeks and imminent delivery, did not administer Betamethasone. 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 L&D Exam - Exam Exam: See Below - Patient Data Lab Results Last 24 hrs: Laboratory Results - last 24 hr 04/25/21 04/25/21 04/25/21 Range/Units 05:50 05:50 05:50 WBC 6.5 (5.0-10.0) 10^3/uL RBC 4.62 (4.2-5.4) 10^6/uL Hgb 13.2 D (12.0-16.0) g/dL Hct 40.2 (37.0-47.0) % MCV 87.0 (80-100) fL MCH 28.6 (27.0-34.0) pg MCHC 32.8 L (33.0-35.0) g/dL Plt Count 213 (150-450) 10^3/uL BUN 11 (7-18) mg/dL Creatinine 0.82 (0.55-1.02) mg/dL Est Cr Clr Drug Dosing TNP Estimated GFR (MDRD) > 60 Uric Acid 4.7 (2.6-6.0) mg/dL AST 34 (15-37) U/L ALT 33 (14-59) U/L Lactate Dehydrogenase (81-234) U/L SARS-CoV-2 RNA (JENNIFER) (NEGATIVE) Blood Type O POSITIVE Gel Antibody Screen Negative 04/25/21 04/25/21 Range/Units 05:50 06:22 WBC (5.0-10.0) 10^3/uL RBC (4.2-5.4) 10^6/uL Hgb (12.0-16.0) g/dL Hct (37.0-47.0) % MCV (80-100) fL MCH (27.0-34.0) pg MCHC (33.0-35.0) g/dL Plt Count (150-450) 10^3/uL BUN (7-18) mg/dL Creatinine (0.55-1.02) mg/dL Est Cr Clr Drug Dosing Estimated GFR (MDRD) Uric Acid (2.6-6.0) mg/dL AST (15-37) U/L ALT (14-59) U/L Lactate Dehydrogenase 210 (81-234) U/L SARS-CoV-2 RNA (JENNIFER) Positive H (NEGATIVE) Blood Type Gel Antibody Screen Result Diagrams: 04/25/21 05:50 04/25/21 05:50 Problem List Initiated/Reviewed/Updated: No Orders Last 24hrs: Active Orders 24 hr Category Date Time Status Patient Status [ADT] Routine ADT 04/25/21 06:22 Active Communication Order [RC] ASDIRECTED Care 04/25/21 06:22 Active Heart Rate [RC] CONTINUOUS Care 04/25/21 06:22 Active Heart Tones [RC] PER UNIT ROUTINE Care 04/25/21 06:22 Active Notify Provider Vital Signs OB [RC] ASDIRECTED Care 04/25/21 06:22 Active Notify Provider [RC] PRN Care 04/25/21 06:22 Active OB Check [OM.PC] PER UNIT ROUTINE Care 04/25/21 06:22 Ordered POC Labs [RC] ASDIRECTED Care 04/25/21 06:22 Active Pump Management, Intrathecal [RC] ASDIRECTED Care 04/25/21 06:35 Active Up ad Phoebe [RC] ASDIRECTED Care 04/25/21 06:22 Active Vital Signs [RC] PER UNIT ROUTINE Care 04/25/21 06:22 Active Regular Diet [DIET] Diet 04/25/21 Dinner Active Regular Diet [DIET] Diet 04/25/21 Lunch Active OB Ltd 1 or More Fetus [US] Routine Exams 04/25/21 06:14 Ordered CBC W/O DIFF,HEMOGRAM [HEME] Routine Lab 04/26/21 06:00 Ordered CULTURE GROUP B STREP [RM] Routine Lab 04/25/21 06:22 Ordered DRUG SCREEN URINE BIORAD [URCHEM] Routine Lab 04/25/21 06:22 Ordered HBSAG SCREEN [REF] Urgent Lab 04/25/21 05:50 Received HEP C VIRUS AB [REF] Urgent Lab 04/25/21 05:50 Received HIV-1/2 AG/AB COMBO 4TH GEN [CHEM] Routine Lab 04/25/21 05:50 Results LACTATE DEHYDROGENASE,LDH [CHEM] Routine Lab 04/25/21 05:50 Results MISC TEST Routine Lab 04/25/21 06:22 Ordered PROTEIN/CREATININE RATIO,URINE [URCHEM] Routine Lab 04/25/21 06:22 Ordered RPR (SYPHILIS SERO) W/ RFLX [REF] Routine Lab 04/25/21 05:50 Received RUBELLA ANTIBODY, IGG [REF] Routine Lab 04/25/21 05:50 Received UA RFX LILLIAN AND CULT IF INDIC [URIN] Routine Lab 04/25/21 06:22 Ordered Acetaminophen [TylenoL] Med 04/25/21 06:38 Active 650 mg PO Q4H PRN Acetaminophen [TylenoL] Med 04/25/21 06:40 Pending 650 mg PO Q6H PRN Benzocaine/Menthol [Dermoplast Pain Relief 20%-0.5% Med 04/25/21 06:40 Active Carpenter] See Dose Instructions TOP Q4H PRN Carboprost Tromethamine [Hemabate DS] Med 04/25/21 06:40 Active 250 mcg IM ASDIRECTED PRN Docusate Sodium [Colace] Med 04/25/21 06:40 Active 100 mg PO BID PRN Ferrous Sulfate Med 04/25/21 08:00 Active 325 mg PO TIDMEALS Ibuprofen [Motrin] Med 04/25/21 06:40 Active 800 mg PO Q8H PRN Lactated Ringers [Ringers, Lactated] 1,000 ml Med 04/25/21 06:30 Active IV ASDIRECTED Lactated Ringers [Ringers, Lactated] 1,000 ml Med 04/25/21 06:21 Active IV BOLUS Lidocaine 1% [Xylocaine-MPF 1%] Med 04/25/21 06:21 Active 30 ml INJECT ASDIRECTED PRN Methylergonovine [Methergine] Med 04/25/21 06:21 Active 0.2 mg IM ASDIRECTED PRN Ondansetron [Zofran] Med 04/25/21 06:21 Active 4 mg IVPUSH Q4H PRN Oxytocin [Pitocin] Med 04/25/21 06:40 Active 10 unit IM ONETIME PRN Oxytocin/Normal Saline [Pitocin in NS 30 UNIT/500 ML] Med 04/25/21 06:30 Active 30 unit in 500 ml IV TITRATE Vit with Ca/FA/Iron [ Plus Iron] Med 04/25/21 09:00 Active 1 each PO DAILY Simethicone Med 04/25/21 06:40 Active 80 mg PO Q4H PRN Sodium Chloride 0.9% [Saline Flush] Med 04/25/21 06:40 Active 10 ml FLUSH ASDIRECTED PRN Tranexamic Acid [Cyklokapron] 1,000 mg Med 04/25/21 06:40 Active Sodium Chloride 0.9% [Normal Saline] 100 ml IV ONETIME Zolpidem [Ambien] Med 04/25/21 06:40 Active 5 mg PO BEDTIME PRN miSOPROStoL [Cytotec] Med 04/25/21 06:40 Active 1,000 mcg RECTAL ONETIME PRN miSOPROStoL [Cytotec] Med 04/25/21 06:21 Active 800 mcg RECTAL ASDIRECTED PRN Assess Lochia [WOMSER] Per Unit Routine Oth 04/25/21 06:40 Ordered Assess Uterine Involution [WOMSER] Per Unit Routine Oth 04/25/21 06:40 Ordered Breast Pump [WOMSER] Per Unit Routine Oth 04/25/21 06:40 Ordered Ice Therapy [OM.PC] Per Unit Routine Oth 04/25/21 06:40 Ordered Perineal Care [OM.PC] Per Unit Routine Oth 04/25/21 06:40 Ordered Saline Lock Insert [OM.PC] Routine Oth 04/25/21 06:22 Ordered Saline Lock Insert [OM.PC] Urgent Oth 04/25/21 06:40 Ordered Sitz Bath [OM.PC] Per Unit Routine Oth 04/25/21 06:40 Ordered Resuscitation Status Routine Resus Stat 04/25/21 06:21 Ordered Medication Orders Acetaminophen (Acetaminophen 325 Mg Tab) 650 mg PO Q4H PRN PRN Reason: Pain (Mild 1-3) and fever Acetaminophen (Acetaminophen 325 Mg Tab) 650 mg PO Q6H PRN PRN Reason: Pain/Fever Benzocaine/Menthol (Benzocaine/Menthol 20%-0.5% Carpenter 78 Gm Cannister) 0 gm TOP Q4H PRN PRN Reason: Perineal comfort measures Carboprost Tromethamine (Carboprost Tromethamine 250 Mcg/1 Ml Amp) 250 mcg IM ASDIRECTED PRN PRN Reason: Excessive vaginal bleeding Docusate Sodium (Docusate Sodium 100 Mg Cap) 100 mg PO BID PRN PRN Reason: Constipation Ferrous Sulfate (Ferrous Sulfate 325 Mg Tab) 325 mg PO TIDMEALS PARADISE Lactated Ringer's (Ringers, Lactated) 1,000 mls @ 125 mls/hr IV BOLUS ONE Stop: 04/25/21 14:20 Lactated Ringer's (Ringers, Lactated) 1,000 mls @ 125 mls/hr IV ASDIRECTED PARAD[facility] Oxytocin/Sodium Chloride (Pitocin In Ns 30 Unit/500 Ml) 30 unit in 500 mls @ 2 mls/hr IV TITRATE PARADISE; Protocol Tranexamic Acid 1,000 mg/ (Sodium Chloride) 110 mls @ 660 mls/hr IV ONETIME PRN PRN Reason: Bleeding Ibuprofen (Ibuprofen 800 Mg Tab) 800 mg PO Q8H PRN PRN Reason: Cramping Lidocaine HCl (Lidocaine 1% 30 Ml Sdv) 30 ml INJECT ASDIRECTED PRN PRN Reason: Perineal Repair Methylergonovine Maleate (Methylergonovine 0.2 Mg/1 Ml Amp) 0.2 mg IM ASDIRECTED PRN PRN Reason: Hemorrhage Misoprostol (Misoprostol 400 Mcg (4 X 100 Mcg Tab)) 800 mcg RECTAL ASDIRECTED PRN PRN Reason: Hemorrhage Misoprostol (Misoprostol 400 Mcg (4 X 100 Mcg Tab)) 1,000 mcg RECTAL ONETIME PRN PRN Reason: Hemorrhage Ondansetron HCl (Ondansetron 4 Mg/2 Ml Sdv) 4 mg IVPUSH Q4H PRN PRN Reason: Nausea/Vomiting Oxytocin (Oxytocin 10 Units/1 Ml Sdv) 10 unit IM ONETIME PRN PRN Reason: Bleeding Prenat Multivit/Emt/Iron/Folic Ac ( Multivitamin With Calcium/Folic Acid/Iron Tab) 1 each PO DAILY PARAD[facility] Simethicone (Simethicone 80 Mg Tab.Chew) 80 mg PO Q4H PRN PRN Reason: Gas Sodium Chloride (Sodium Chloride 0.9% 10 Ml Syringe) 10 ml FLUSH ASDIRECTED PRN PRN Reason: Keep Vein Open Zolpidem Tartrate (Zolpidem 5 Mg Tab) 5 mg PO BEDTIME PRN PRN Reason: Insomnia
[2021-04-25] MEDS ORDERED: Ferrous Sulfate 325 MG Tab PO SCH (08:00)
[2021-04-25 08:15] LABS: AMPHETAMINES,URINE POSITIVE (NEGATIVE); BARBITURATES,URINE NEGATIVE (NEGATIVE); BENZODIAZEPINE,URINE NEGATIVE (NEGATIVE); MDMA (ECSTASY), URINE POSITIVE (NEGATIVE); METHADONE,URINE NEGATIVE (NEGATIVE); METHAMPHETAMINES,URINE POSITIVE (NEGATIVE); OPIATES,URINE NEGATIVE (NEGATIVE); OXYCODONE,URINE NEGATIVE (NEGATIVE); PHENCYCLIDINE,URINE NEGATIVE (NEGATIVE); TCA,URINE NEGATIVE (NEGATIVE)
[2021-04-25] MEDS: Oxytocin/Normal Saline 30 UNIT/500 ML BAG IV SCH ×2 (08:18→09:55)
[2021-04-25] MEDS ORDERED: Silver Nitrate Applicator Each ONE (08:25)
[2021-04-25] MEDS ORDERED: Nalbuphine 10 MG/1 ML Vial IM ONE (08:28)
[2021-04-25] MEDS ORDERED: Penicillin G Potassium 5 MILLUNITS in Sodium Chloride 0.9% 100 ML IV ONE (08:28)
[2021-04-25] MEDS ORDERED: Prenatal Multivitamin with Calcium/Folic Acid/Iron Tab PO SCH (09:00)
[2021-04-25] MEDS: Ferrous Sulfate 325 MG Tab PO SCH ×3 (11:07→18:08)
[2021-04-25] MEDS: Acetaminophen 325 MG Tab PO PRN ×2 (11:08→19:40)
[2021-04-25] MEDS: Ibuprofen 800 MG Tab PO PRN ×2 (11:09→19:39)
--- NOTE | 2021-04-25 14:55 | PCM.LDHP ---
<Mechelle Stover - Last Filed: 04/25/21 14:53> L&D History of Present Illness - General Date of Service: 04/25/21 Admit Problem/Dx: Chief Complaint: Labor HPI: 25yo presents with contractions and abdominal pain that started this morning at 4:30am, woke her from sleep. These have become more regular and frequent. She reports an CANDY 05/21/2021 from a 20 week ultrasound, placing her at 36w3d. No vaginal bleeding or loss of fluid this morning. She admits to marijuana and Tobacco/cigarette use, denies other drug use. Past records show UDS positive methamphetamines/amphetamines in prior pregnancies. Patient does not have custody of her two older children. care of one visit at [facility] and one ultrasound appointment. labs have been drawn. COVID positive. Patient reports cough and fatigue two weeks ago. OB HISTORY: G3 current, < 3 visits G2 03/27/2020. Pre-eclampsia. Male, 2280g. at 34-5/7weeks based on day of delivery ultrasound. THC/methamphetamine positive UDS. GBS positive. G1 05/25/2019. Female. Vacuum assisted vaginal delivery. THC/Methamphetamine positive UDS. ALLERGIES: None MEDICATIONS: vitamin with iron PAST MEDICAL/PAST SURGICAL HISTORY: Dental surgery at age 18. Patient denies prior hospitalizations other than Labor and Delivery FAMILY HISTORY: Not known to patient. Per old records, denies bleeding problems, defects, or reactions to anesthesia. SOCIAL HISTORY: Lives in [place] with Father of Baby/Partner Cliff Garza, this is their 3rd child together. The couple lives with Patients brother. Patient reports her children are in [place]. Old records note Paternal grandmother had custody of the oldest child. REVIEW OF SYSTEMS: Quickly obtained and otherwise reviewed and felt to be contri butory as per the above. OBJECTIVE: VITALS: 140/82, HR 56, RR 16, on room air. 97.6F. 5 feet, 1 inch. 130lbs. APPERANCE: Female, appears stated age, Crying through contractions. Answering questions in between contractions. HEENT: Head atraumatic. EOM intact. No scleral icterus. Mucous membranes moist. NECK: Trachea midline LUNGS: Clear to auscultation bilaterally, no rhonchi or wheezing. No increased work of breathing. HEART: S1, S2. Regular rate and rhythm. ABDOMEN: Gravid, measures 33cm. Non-tender. EXTREMITIES: No peripheral edema. PSYCHIATRIC: Subdued affect, limited evaluation due to pain SKIN: No cyanosis or clubbing. Needle tracts in antecubital fossa bilaterally Cervix: 5cm dilation LABORATORY DATA: Hgb 13.2, Plt 213. WBC 6.5. Cr. 0.82. AST/ALT non-elevated. COVID positive. MONITORING: Category 1. heart tones 140-150s. Nathanael every 1-2 minutes ASSESSMENT: 1. Intrauterine reported 36w2d, exam concerning for Gestational age <35 weeks or IGUR. 2. labor 3. No care 4. History of Pre-eclampsia. 5. Active labor on admission 6. Group B streptococcus unknown with hx of positive PLAN: Patient was admitted and after positive COVID test was moved to negative pressure room. Patient and partner informed they were to stay in the room at all times until time of discharge. Ultrasound ordered, Average gestational age of 33w6d. No Care labs ordered and pending. Patient has not urinated. Penicillin running. With report of GA > 36 weeks and imminent delivery, did not administer Betamethasone. Mechelle Stover MD PGY3 04/25/21 14:51 04/25/21 14:54 Source of Information: Patient, Old Records, Significant Other - History of Present Illness Pain Score: 6 - Related Data Allergies/Adverse Reactions: Allergies Allergy/AdvReac Type Severity Reaction Status Date / Time No Known Allergies Allergy Verified 04/25/21 08:29 Home Medications: Home Meds #103/Iron Fumarate/Fa [ ] 1 tab PO DAILY 05/24/19 [Histo ry] Acetaminophen [Tylenol] 650 mg PO Q4H PRN tablet 03/30/20 [Rx] Docusate Sodium [Colace] 100 mg PO BID PRN cap 03/30/20 [Rx] Ferrous Sulfate 325 mg PO WITHBREAKFAST tablet 03/30/20 [Rx] Ibuprofen [Motrin] 800 mg PO Q8H PRN tablet 03/30/20 [Rx] Past Medical History - Past Health History Medical/Surgical History: Denies 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: Hematologic History: Reports: Anemia - Past Surgical History HEENT Surgical History: Reports: Oral Surgery, Other (See Below) Other HEENT Surgeries/Procedures: wisdom teeth removed Social & Family History - Family History Family Medical History: Unobtainable - Tobacco Use Tobacco Use Status *Q: Current Every Day Tobacco User Years of Tobacco use: 5 Packs/Tins Daily: 0.2 Used Tobacco, but Quit: No Second Hand Smoke Exposure: Yes - Caffeine Use Caffeine Use: Reports: Soda - Recreational Drug Use Recreational Drug Use: Yes Drug Use in Last 12 Months: Yes Recreational Drug Type: Reports: Marijuana/Hashish H&P Review of Systems - Review of Systems: Review Of Systems: See Below L&D Exam - Exam Exam: See Below - Vital Signs Vital Signs: Last Vital Signs Temp 97.6 F 04/25/21 06:00 Pulse 56 L 04/25/21 06:35 Resp 16 04/25/21 06:35 BP 140/83 04/25/21 06:35 Pulse Ox Weight: 130 lb - OB Specific Contraction Duration (sec): 80 Contraction Frequency (min): 1-5-2 Contraction Intensity: Moderate to Strong - Patient Data Lab Results Last 24 hrs: Laboratory Results - last 24 hr 04/25/21 04/25/21 04/25/21 Range/Units 05:50 05:50 05:50 WBC 6.5 (5.0-10.0) 10^3/uL RBC 4.62 (4.2-5.4) 10^6/uL Hgb 13.2 D (12.0-16.0) g/dL Hct 40.2 (37.0-47.0) % MCV 87.0 (80-100) fL MCH 28.6 (27.0-34.0) pg MCHC 32.8 L (33.0-35.0) g/dL Plt Count 213 (150-450) 10^3/uL BUN 11 (7-18) mg/dL Creatinine 0.82 (0.55-1.02) mg/dL Est Cr Clr Drug Dosing TNP Estimated GFR (MDRD) > 60 Uric Acid 4.7 (2.6-6.0) mg/dL AST 34 (15-37) U/L ALT 33 (14-59) U/L Lactate Dehydrogenase (81-234) U/L Urine Color (YELLOW) Urine Appearance (CLEAR) Urine pH (5.0-9.0) Ur Specific [place] (1.005-1.030) Urine Protein (NEGATIVE) Urine Glucose (UA) (NEGATIVE) Urine Ketones (NEGATIVE) Urine Occult Blood (NEGATIVE) Urine Nitrite (NEGATIVE) Urine Bilirubin (NEGATIVE) Urine Urobilinogen (0.2-1.0) mg/dL Ur Leukocyte Esterase (NEGATIVE) Ur Random Creatinine (No establ ref range) mg/dL U Random Total Protein (0.0-11.9) mg/dL Protein/Creatinin Ratio (<150.0) mg/g Urine Opiates Screen (NEGATIVE) Ur Oxycodone Screen (NEGATIVE) Urine Methadone Screen (NEGATIVE) Ur Barbiturates Screen (NEGATIVE) U Tricyclic Antidepress (NEGATIVE) Ur Phencyclidine Scrn (NEGATIVE) Ur Amphetamine Screen (NEGATIVE) U Methamphetamines Scrn (NEGATIVE) Urine MDMA Screen (NEGATIVE) U Benzodiazepines Scrn (NEGATIVE) Urine Cocaine Screen (NEGATIVE) U Marijuana (THC) Screen (NEGATIVE) HIV-1 Antibody (NONREACTIVE) HIV-2 Antibody (NONREACTIVE) HIV P24 Antigen (NONREACTIVE) SARS-CoV-2 RNA (JENNIFER) (NEGATIVE) Blood Type O POSITIVE Gel Antibody Screen Negative 04/25/21 04/25/21 04/25/21 Range/Units 05:50 06:22 07:40 WBC (5.0-10.0) 10^3/uL RBC (4.2-5.4) 10^6/uL Hgb (12.0-16.0) g/dL Hct (37.0-47.0) % MCV (80-100) fL MCH (27.0-34.0) pg MCHC (33.0-35.0) g/dL Plt Count (150-450) 10^3/uL BUN (7-18) mg/dL Creatinine (0.55-1.02) mg/dL Est Cr Clr Drug Dosing Estimated GFR (MDRD) Uric Acid (2.6-6.0) mg/dL AST (15-37) U/L ALT (14-59) U/L Lactate Dehydrogenase 210 (81-234) U/L Urine Color Yellow (YELLOW) Urine Appearance Clear (CLEAR) Urine pH 7.0 (5.0-9.0) Ur Specific [place] 1.025 (1.005-1.030) Urine Protein Negative (NEGATIVE) Urine Glucose (UA) Negative (NEGATIVE) Urine Ketones Negative (NEGATIVE) Urine Occult Blood Negative (NEGATIVE) Urine Nitrite Negative (NEGATIVE) Urine Bilirubin Negative (NEGATIVE) Urine Urobilinogen 0.2 (0.2-1.0) mg/dL Ur Leukocyte Esterase Negative (NEGATIVE) Ur Random Creatinine (No establ ref range) mg/dL U Random Total Protein (0.0-11.9) mg/dL Protein/Creatinin Ratio (<150.0) mg/g Urine Opiates Screen (NEGATIVE) Ur Oxycodone Screen (NEGATIVE) Urine Methadone Screen (NEGATIVE) Ur Barbiturates Screen (NEGATIVE) U Tricyclic Antidepress (NEGATIVE) Ur Phencyclidine Scrn (NEGATIVE) Ur Amphetamine Screen (NEGATIVE) U Methamphetamines Scrn (NEGATIVE) Urine MDMA Screen (NEGATIVE) U Benzodiazepines Scrn (NEGATIVE) Urine Cocaine Screen (NEGATIVE) U Marijuana (THC) Screen (NEGATIVE) HIV-1 Antibody Non-reactive (NONREACTIVE) HIV-2 Antibody Non-reactive (NONREACTIVE) HIV P24 Antigen Non-reactive (NONREACTIVE) SARS-CoV-2 RNA (JENNIFER) Positive H (NEGATIVE) Blood Type Gel Antibody Screen 04/25/21 04/25/21 Range/Units 07:40 07:40 WBC (5.0-10.0) 10^3/uL RBC (4.2-5.4) 10^6/uL Hgb (12.0-16.0) g/dL Hct (37.0-47.0) % MCV (80-100) fL MCH (27.0-34.0) pg MCHC (33.0-35.0) g/dL Plt Count (150-450) 10^3/uL BUN (7-18) mg/dL Creatinine (0.55-1.02) mg/dL Est Cr Clr Drug Dosing Estimated GFR (MDRD) Uric Acid (2.6-6.0) mg/dL AST (15-37) U/L ALT (14-59) U/L Lactate Dehydrogenase (81-234) U/L Urine Color (YELLOW) Urine Appearance (CLEAR) Urine pH (5.0-9.0) Ur Specific [place] (1.005-1.030) Urine Protein (NEGATIVE) Urine Glucose (UA) (NEGATIVE) Urine Ketones (NEGATIVE) Urine Occult Blood (NEGATIVE) Urine Nitrite (NEGATIVE) Urine Bilirubin (NEGATIVE) Urine Urobilinogen (0.2-1.0) mg/dL Ur Leukocyte Esterase (NEGATIVE) Ur Random Creatinine 76.83 (No establ ref range) mg/dL U Random Total Protein 50.6 H (0.0-11.9) mg/dL Protein/Creatinin Ratio 658.6 H (<150.0) mg/g Urine Opiates Screen Negative (NEGATIVE) Ur Oxycodone Screen Negative (NEGATIVE) Urine Methadone Screen Negative (NEGATIVE) Ur Barbiturates Screen Negative (NEGATIVE) U Tricyclic Antidepress Negative (NEGATIVE) Ur Phencyclidine Scrn Negative (NEGATIVE) Ur Amphetamine Screen Positive H (NEGATIVE) U Methamphetamines Scrn Positive H (NEGATIVE) Urine MDMA Screen Positive H (NEGATIVE) U Benzodiazepines Scrn Negative (NEGATIVE) Urine Cocaine Screen Negative (NEGATIVE) U Marijuana (THC) Screen Positive H (NEGATIVE) HIV-1 Antibody (NONREACTIVE) HIV-2 Antibody (NONREACTIVE) HIV P24 Antigen (NONREACTIVE) SARS-CoV-2 RNA (JENNIFER) (NEGATIVE) Blood Type Gel Antibody Screen Result Diagrams: 04/25/21 05:50 04/25/21 05:50 Problem List Initiated/Reviewed/Updated: No Orders Last 24hrs: Active Orders 24 hr Category Date Time Status Patient Status [ADT] Routine ADT 04/25/21 06:22 Active Communication Order [RC] ASDIRECTED Care 04/25/21 06:22 Active Heart Rate [RC] CONTINUOUS Care 04/25/21 06:22 Active Heart Tones [RC] PER UNIT ROUTINE Care 04/25/21 06:22 Active Notify Provider Vital Signs OB [RC] ASDIRECTED Care 04/25/21 06:22 Active Notify Provider [RC] PRN Care 04/25/21 06:22 Active OB Check [OM.PC] PER UNIT ROUTINE Care 04/25/21 06:22 Ordered POC Labs [RC] ASDIRECTED Care 04/25/21 06:22 Active Pump Management, Intrathecal [RC] ASDIRECTED Care 04/25/21 06:35 Active Up ad Phoebe [RC] ASDIRECTED Care 04/25/21 06:22 Active Vital Signs [RC] 08,20 Care 04/25/21 06:22 Active Regular Diet [DIET] Diet 04/25/21 Dinner Active Regular Diet [DIET] Diet 04/25/21 Lunch Active CBC W/O DIFF,HEMOGRAM [HEME] Routine Lab 04/26/21 06:00 Ordered CULTURE GROUP B STREP [RM] Routine Lab 04/25/21 05:54 Received HBSAG SCREEN [REF] Urgent Lab 04/25/21 05:50 Received HEP C VIRUS AB [REF] Urgent Lab 04/25/21 05:50 Received MISC TEST Routine Lab 04/25/21 09:11 Ordered RPR (SYPHILIS SERO) W/ RFLX [REF] Routine Lab 04/25/21 05:50 Received RUBELLA ANTIBODY, IGG [REF] Routine Lab 04/25/21 05:50 Received TRAMADOL, SCREEN ONLY, UR Routine Lab 04/25/21 07:40 Received Acetaminophen [TylenoL] Med 04/25/21 06:38 Active 650 mg PO Q4H PRN Benzocaine/Menthol [Dermoplast Pain Relief 20%-0.5% Med 04/25/21 06:40 Active Coulter] See Dose Instructions TOP Q4H PRN Carboprost Tromethamine [Hemabate DS] Med 04/25/21 06:40 Active 250 mcg IM ASDIRECTED PRN Docusate Sodium [Colace] Med 04/25/21 06:40 Active 100 mg PO BID PRN Ferrous Sulfate Med 04/25/21 08:00 Active 325 mg PO TIDMEALS Ibuprofen [Motrin] Med 04/25/21 06:40 Active 800 mg PO Q8H PRN Lactated Ringers [Ringers, Lactated] 1,000 ml Med 04/25/21 06:30 Active IV ASDIRECTED Lidocaine 1% [Xylocaine-MPF 1%] Med 04/25/21 06:21 Active 30 ml INJECT ASDIRECTED PRN Methylergonovine [Methergine] Med 04/25/21 06:21 Active 0.2 mg IM ASDIRECTED PRN Ondansetron [Zofran] Med 04/25/21 06:21 Active 4 mg IVPUSH Q4H PRN Oxytocin [Pitocin] Med 04/25/21 06:40 Active 10 unit IM ONETIME PRN Oxytocin/Normal Saline [Pitocin in NS 30 UNIT/500 ML] Med 04/25/21 06:30 Active 30 unit in 500 ml IV TITRATE Vit with Ca/FA/Iron [ Plus Iron] Med 04/25/21 09:00 Active 1 each PO DAILY Simethicone Med 04/25/21 06:40 Active 80 mg PO Q4H PRN Sodium Chloride 0.9% [Saline Flush] Med 04/25/21 06:40 Active 10 ml FLUSH ASDIRECTED PRN Tranexamic Acid [Cyklokapron] 1,000 mg Med 04/25/21 06:40 Active Sodium Chloride 0.9% [Normal Saline] 100 ml IV ONETIME Zolpidem [Ambien] Med 04/25/21 06:40 Active 5 mg PO BEDTIME PRN miSOPROStoL [Cytotec] Med 04/25/21 06:40 Active 1,000 mcg RECTAL ONETIME PRN miSOPROStoL [Cytotec] Med 04/25/21 06:21 Active 800 mcg RECTAL ASDIRECTED PRN Assess Lochia [WOMSER] Per Unit Routine Oth 04/25/21 06:40 Ordered Assess Uterine Involution [WOMSER] Per Unit Routine Oth 04/25/21 06:40 Ordered Breast Pump [WOMSER] Per Unit Routine Oth 04/25/21 06:40 Ordered Ice Therapy [OM.PC] Per Unit Routine Oth 04/25/21 06:40 Ordered Perineal Care [OM.PC] Per Unit Routine Oth 04/25/21 06:40 Ordered Saline Lock Insert [OM.PC] Routine Oth 04/25/21 06:22 Ordered Saline Lock Insert [OM.PC] Urgent Oth 04/25/21 06:40 Ordered Sitz Bath [OM.PC] Per Unit Routine Oth 04/25/21 06:40 Ordered Resuscitation Status Routine Resus Stat 04/25/21 06:21 Ordered Medication Orders Acetaminophen (Acetaminophen 325 Mg Tab) 650 mg PO Q4H PRN PRN Reason: Pain (Mild 1-3) and fever Last Admin: 04/25/21 11:08 Dose: 650 mg Documented by: CRISTY Benzocaine/Menthol (Benzocaine/Menthol 20%-0.5% Coulter 78 Gm Cannister) 0 gm TOP Q4H PRN PRN Reason: Perineal comfort measures Carboprost Tromethamine (Carboprost Tromethamine 250 Mcg/1 Ml Amp) 250 mcg IM ASDIRECTED PRN PRN Reason: Excessive vaginal bleeding Docusate Sodium (Docusate Sodium 100 Mg Cap) 100 mg PO BID PRN PRN Reason: Constipation Ferrous Sulfate (Ferrous Sulfate 325 Mg Tab) 325 mg PO TIDMEALS PARADISE Last Admin: 04/25/21 11:08 Dose: 325 mg Documented by: Admin: 04/25/21 11:07 Dose: Not Given Documented by: CRISTY Lactated Ringer's (Ringers, Lactated) 1,000 mls @ 125 mls/hr IV ASDIRECTED PARADISE Oxytocin/Sodium Chloride (Pitocin In Ns 30 Unit/500 Ml) 30 unit in 500 mls @ 2 mls/hr IV TITRATE PARADISE; Protocol Tranexamic Acid 1,000 mg/ (Sodium Chloride) 110 mls @ 660 mls/hr IV ONETIME PRN PRN Reason: Bleeding Ibuprofen (Ibuprofen 800 Mg Tab) 800 mg PO Q8H PRN PRN Reason: Cramping Last Admin: 04/25/21 11:09 Dose: 800 mg Documented by: CRISTY Lidocaine HCl (Lidocaine 1% 30 Ml Sdv) 30 ml INJECT ASDIRECTED PRN PRN Reason: Perineal Repair Methylergonovine Maleate (Methylergonovine 0.2 Mg/1 Ml Amp) 0.2 mg IM ASDIRECTED PRN PRN Reason: Hemorrhage Misoprostol (Misoprostol 400 Mcg (4 X 100 Mcg Tab)) 800 mcg RECTAL ASDIRECTED PRN PRN Reason: Hemorrhage Misoprostol (Misoprostol 400 Mcg (4 X 100 Mcg Tab)) 1,000 mcg RECTAL ONETIME PRN PRN Reason: Hemorrhage Ondansetron HCl (Ondansetron 4 Mg/2 Ml Sdv) 4 mg IVPUSH Q4H PRN PRN Reason: Nausea/Vomiting Oxytocin (Oxytocin 10 Units/1 Ml Sdv) 10 unit IM ONETIME PRN PRN Reason: Bleeding Prenat Multivit/Tunica/Iron/Folic Ac ( Multivitamin With Calcium/Folic Acid/Iron Tab) 1 each PO DAILY ON LICENSE OF [facility] Simethicone (Simethicone 80 Mg Tab.Chew) 80 mg PO Q4H PRN PRN Reason: Gas Sodium Chloride (Sodium Chloride 0.9% 10 Ml Syringe) 10 ml FLUSH ASDIRECTED PRN PRN Reason: Keep Vein Open Zolpidem Tartrate (Zolpidem 5 Mg Tab) 5 mg PO BEDTIME PRN PRN Reason: Insomnia <Angola,Felipe - Last Filed: 04/26/21 10:15> L&D History of Present Illness - General Admit Problem/Dx: Patient Status Order with Admit Dx/Problem 04/25/21 06:22 Patient Status [ADT] Routine Admission Diagnosis/Problem Admission Diagnosis/Problem Labor without complication L&D Exam - Vital Signs Vital Signs: Last Vital Signs Temp 97.3 F 04/25/21 20:00 Pulse 62 04/25/21 20:00 Resp 20 04/25/21 20:00 BP 133/82 04/25/21 20:00 Pulse Ox 100 04/25/21 20:00 - Patient Data Lab Results Last 24 hrs: Laboratory Results - last 24 hr 04/26/21 Range/Units 06:00 WBC 6.8 (5.0-10.0) 10^3/uL RBC 3.49 L (4.2-5.4) 10^6/uL Hgb 10.0 L D (12.0-16.0) g/dL Hct 31.2 L (37.0-47.0) % MCV 89.4 (80-100) fL MCH 28.7 (27.0-34.0) pg MCHC 32.1 L (33.0-35.0) g/dL Plt Count 184 (150-450) 10^3/uL Result Diagrams: 04/26/21 06:00 04/25/21 05:50 Orders Last 24hrs: Active Orders 24 hr Category Date Time Status Ready for Discharge [RC] PER UNIT ROUTINE Care 04/26/21 10:11 Active Regular Diet [DIET] Diet 04/25/21 Dinner Active Regular Diet [DIET] Diet 04/25/21 Lunch Active MISC TEST Routine Lab 04/25/21 16:00 Received Medication Orders Acetaminophen (Acetaminophen 325 Mg Tab) 650 mg PO Q4H PRN PRN Reason: Pain (Mild 1-3) and fever Last Admin: 04/25/21 19:40 Dose: 650 mg Documented by: Admin: 04/25/21 11:08 Dose: 650 mg Documented by: CRISTY Benzocaine/Menthol (Benzocaine/Menthol 20%-0.5% Coulter 78 Gm Cannister) 0 gm TOP Q4H PRN PRN Reason: Perineal comfort measures Last Admin: 04/25/21 19:42 Dose: 1 applic Documented by: BROOKE Carboprost Tromethamine (Carboprost Tromethamine 250 Mcg/1 Ml Amp) 250 mcg IM ASDIRECTED PRN PRN Reason: Excessive vaginal bleeding Docusate Sodium (Docusate Sodium 100 Mg Cap) 100 mg PO BID PRN PRN Reason: Constipation Last Admin: 04/26/21 09:04 Dose: 100 mg Documented by: Admin: 04/25/21 19:42 Dose: 100 mg Documented by: BROOKE Ferrous Sulfate (Ferrous Sulfate 325 Mg Tab) 325 mg PO TIDMEALS PARADISE Last Admin: 04/26/21 09:03 Dose: 325 mg Documented by: Admin: 04/25/21 18:08 Dose: 325 mg Documented by: Admin: 04/25/21 11:08 Dose: 325 mg Documented by: Admin: 04/25/21 11:07 Dose: Not Given Documented by: CRISTY Lactated Ringer's (Ringers, Lactated) 1,000 mls @ 125 mls/hr IV ASDIRECTED PARADISE Last Admin: 04/25/21 07:50 Dose: 125 mls/hr Documented by: CRISTY Oxytocin/Sodium Chloride (Pitocin In Ns 30 Unit/500 Ml) 30 unit in 500 mls @ 2 mls/hr IV TITRATE PARADISE; Protocol Last Titration: 04/25/21 15:00 Dose: 0 munits/min, 0 mls/hr Documented by: Titration: 04/25/21 10:30 Dose: 50 munits/min, 50 mls/hr Documented by: Admin: 04/25/21 09:55 Dose: 125 munits/min, 125 mls/hr Documented by: Titration: 04/25/21 09:55 Dose: 125 munits/min, 125 mls/hr Documented by: Titration: 04/25/21 09:27 Dose: 125 munits/min, 125 mls/hr Documented by: Titration: 04/25/21 08:41 Dose: 250 munits/min, 250 mls/hr Documented by: Titration: 04/25/21 08:27 Dose: 500 munits/min, 500 mls/hr Documented by: Admin: 04/25/21 08:18 Dose: 999 munits/min, 999 mls/hr Documented by: CRISTY Tranexamic Acid 1,000 mg/ (Sodium Chloride) 110 mls @ 660 mls/hr IV ONETIME PRN PRN Reason: Bleeding Ibuprofen (Ibuprofen 800 Mg Tab) 800 mg PO Q8H PRN PRN Reason: Cramping Last Admin: 04/26/21 09:03 Dose: 800 mg Documented by: Admin: 04/25/21 19:39 Dose: 800 mg Documented by: Admin: 04/25/21 11:09 Dose: 800 mg Documented by: CRISTY Lidocaine HCl (Lidocaine 1% 30 Ml Sdv) 30 ml INJECT ASDIRECTED PRN PRN Reason: Perineal Repair Methylergonovine Maleate (Methylergonovine 0.2 Mg/1 Ml Amp) 0.2 mg IM ASDIRECTED PRN PRN Reason: Hemorrhage Misoprostol (Misoprostol 400 Mcg (4 X 100 Mcg Tab)) 800 mcg RECTAL ASDIRECTED PRN PRN Reason: Hemorrhage Misoprostol (Misoprostol 400 Mcg (4 X 100 Mcg Tab)) 1,000 mcg RECTAL ONETIME PRN PRN Reason: Hemorrhage Ondansetron HCl (Ondansetron 4 Mg/2 Ml Sdv) 4 mg IVPUSH Q4H PRN PRN Reason: Nausea/Vomiting Oxytocin (Oxytocin 10 Units/1 Ml Sdv) 10 unit IM ONETIME PRN PRN Reason: Bleeding Prenat Multivit/Lumber Mover/Iron/Folic Ac ( Multivitamin With Calcium/Folic Acid/Iron Tab) 1 each PO DAILY PARADISE Last Admin: 04/26/21 09:04 Dose: 1 each Documented by: Admin: 04/25/21 17:07 Dose: Not Given Documented by: CRISTY Simethicone (Simethicone 80 Mg Tab.Chew) 80 mg PO Q4H PRN PRN Reason: Gas Sodium Chloride (Sodium Chloride 0.9% 10 Ml Syringe) 10 ml FLUSH ASDIRECTED PRN PRN Reason: Keep Vein Open Zolpidem Tartrate (Zolpidem 5 Mg Tab) 5 mg PO BEDTIME PRN PRN Reason: Insomnia Attestation - Resident - Attestation Statement Attestation Statement: I saw and evaluated the patient. Discussed with resident and agree with residents findings and plan as documented in the residents note.
[2021-04-25] MEDS: Prenatal Multivitamin with Calcium/Folic Acid/Iron Tab PO SCH (17:07)
--- NOTE | 2021-04-25 19:01 | PCM.DEL ---
<Mechelle Stover - Last Filed: 04/25/21 19:20> L & D Note - General Info Date of Service: 04/25/21 Mother's Due Date: 05/21/21 (Reported by patient, no records to confirm ) - Delivery Note Labor: Spontaneous Infant Delivery Method: Spontaneous Vaginal Delivery-Single Nuchal Cord: Present (Reduced at perineum ) Anesthesia Type: Other (see below) (Nubain 20mg) Amniotic Fluid Description: Clear Episiotomy Type: None Laceration: 1st Degree (Periurethral ) Placenta: Intact, Spontaneous Cord: 3 Vessels Estimated Blood Loss: 200 Resuscitation Needed: No [place]: Stimulated, Warmed Provider: Tamica Garcia Score 1 min: 8 Score 5 min: 9 Second Stage Interventions: Reports: Pushing Effectively Delivery Comments (Free Text/Narrative):: PRE-OPERATIVE DIAGNOSIS: 1. Intrauterine reported 36w2d, exam concerning for Gestational age <35 weeks or IGUR. 2. Active labor 3. No care 4. History of Pre-eclampsia. 5. Active labor on admission 6. Group B streptococcus unknown with hx of positive, Penicillin running 7. G3 P 2-0-0-2 POST-OPERATIVE DIABNOSIS: 1. Intrauterine reported 36w2d, exam concerning for Gestational age <35 weeks or IGUR. Delivered 2. labor 3. No care 4. UDS positive for THC/ Methamphetamine&Amphetamine/ MDMA 5. Group B streptococcus unknown with hx of positive, 1 dose Penicillin given 6. History of Pre-eclampsia. 7. Active labor on admission 8. Group B streptococcus unknown with hx of positive 9. G3 P 3-0-0-3 PROCEDURE PERFORMED: Spontaneous vaginal delivery PHYSICIAN: John Whittaker MD. Mechelle Stover MD PGY30 ANESTHESIA: Nubain 20mg ESTIMATED BLOOD LOSS: 200MG FINDINGS: Female. APGARs 8 / 9. Weight 2100g / 4lb 11oz Length 18in Chest 12.5in Head 12 in Abdomen 13 in Cord arterial: pH 7.24, Base Excess -5.0, pO2 no end point Cord venous: pH 7.30, Base Excess -4.8, pO2 no end point Cord sample send for Drug exposure testing SUMMARY OF EVENTS: Patient is a 25yo with no care, hx of pre-eclampsia, and history of THC and methamphetamine use in . She presented in active labor around 5:00am 04/25/21. The patient was found to be COVID positive and moved to negative pressure room. Penicillin was being administered for unknown GBS status. Urine had not been collected, straight catheter for clear yellow urine. Nubain 20mg administered. AROM at 7:35AM for small amount of clear fluid, cervix 8/ 90%/ 0. She rapidly reached complete dilation and began pushing at 08:06am. Delivered female in BILLY/right shoulder anterior position at 8:12AM. Cord double clamped and cut by Dr. Whittaker, infant brought immediately to warmer. Cord clamped again and section taken for cord blood gases and drug exposure testing. Cord blood collected and Pitocin initiated. Placenta delivered spontaneously and intact. 3 vessel cord confirmed. Vaginal mucosa inspected and a 2cm first degree right mohan-urethral laceration identified. Cauterized with two silver nitrate applications. Vaginal mucosa re-inspected, no other lacerations identified. Mother and infant stable at time of note. - General Info Date of Service: 04/25/21 - Patient Data Vitals - Most Recent: Last Vital Signs Temp 97.6 F 04/25/21 06:00 Pulse 54 L 04/25/21 07:30 Resp 16 04/25/21 06:35 BP 119/69 04/25/21 07:30 Pulse Ox Weight - Most Recent: 130 lb Lab Results Last 24 Hours: Laboratory Results - last 24 hr 04/25/21 04/25/21 04/25/21 Range/Units 05:50 05:50 05:50 WBC 6.5 (5.0-10.0) 10^3/uL RBC 4.62 (4.2-5.4) 10^6/uL Hgb 13.2 D (12.0-16.0) g/dL Hct 40.2 (37.0-47.0) % MCV 87.0 (80-100) fL MCH 28.6 (27.0-34.0) pg MCHC 32.8 L (33.0-35.0) g/dL Plt Count 213 (150-450) 10^3/uL BUN 11 (7-18) mg/dL Creatinine 0.82 (0.55-1.02) mg/dL Est Cr Clr Drug Dosing TNP Estimated GFR (MDRD) > 60 Uric Acid 4.7 (2.6-6.0) mg/dL AST 34 (15-37) U/L ALT 33 (14-59) U/L Lactate Dehydrogenase (81-234) U/L Urine Color (YELLOW) Urine Appearance (CLEAR) Urine pH (5.0-9.0) Ur Specific [place] (1.005-1.030) Urine Protein (NEGATIVE) Urine Glucose (UA) (NEGATIVE) Urine Ketones (NEGATIVE) Urine Occult Blood (NEGATIVE) Urine Nitrite (NEGATIVE) Urine Bilirubin (NEGATIVE) Urine Urobilinogen (0.2-1.0) mg/dL Ur Leukocyte Esterase (NEGATIVE) Ur Random Creatinine (No establ ref range) mg/dL U Random Total Protein (0.0-11.9) mg/dL Protein/Creatinin Ratio (<150.0) mg/g Urine Opiates Screen (NEGATIVE) Ur Oxycodone Screen (NEGATIVE) Urine Methadone Screen (NEGATIVE) Ur Barbiturates Screen (NEGATIVE) U Tricyclic Antidepress (NEGATIVE) Ur Phencyclidine Scrn (NEGATIVE) Ur Amphetamine Screen (NEGATIVE) U Methamphetamines Scrn (NEGATIVE) Urine MDMA Screen (NEGATIVE) U Benzodiazepines Scrn (NEGATIVE) Urine Cocaine Screen (NEGATIVE) U Marijuana (THC) Screen (NEGATIVE) HIV-1 Antibody (NONREACTIVE) HIV-2 Antibody (NONREACTIVE) HIV P24 Antigen (NONREACTIVE) SARS-CoV-2 RNA (JENNIFER) (NEGATIVE) Blood Type O POSITIVE Gel Antibody Screen Negative 04/25/21 04/25/21 04/25/21 Range/Units 05:50 06:22 07:40 WBC (5.0-10.0) 10^3/uL RBC (4.2-5.4) 10^6/uL Hgb (12.0-16.0) g/dL Hct (37.0-47.0) % MCV (80-100) fL MCH (27.0-34.0) pg MCHC (33.0-35.0) g/dL Plt Count (150-450) 10^3/uL BUN (7-18) mg/dL Creatinine (0.55-1.02) mg/dL Est Cr Clr Drug Dosing Estimated GFR (MDRD) Uric Acid (2.6-6.0) mg/dL AST (15-37) U/L ALT (14-59) U/L Lactate Dehydrogenase 210 (81-234) U/L Urine Color Yellow (YELLOW) Urine Appearance Clear (CLEAR) Urine pH 7.0 (5.0-9.0) Ur Specific [place] 1.025 (1.005-1.030) Urine Protein Negative (NEGATIVE) Urine Glucose (UA) Negative (NEGATIVE) Urine Ketones Negative (NEGATIVE) Urine Occult Blood Negative (NEGATIVE) Urine Nitrite Negative (NEGATIVE) Urine Bilirubin Negative (NEGATIVE) Urine Urobilinogen 0.2 (0.2-1.0) mg/dL Ur Leukocyte Esterase Negative (NEGATIVE) Ur Random Creatinine (No establ ref range) mg/dL U Random Total Protein (0.0-11.9) mg/dL Protein/Creatinin Ratio (<150.0) mg/g Urine Opiates Screen (NEGATIVE) Ur Oxycodone Screen (NEGATIVE) Urine Methadone Screen (NEGATIVE) Ur Barbiturates Screen (NEGATIVE) U Tricyclic Antidepress (NEGATIVE) Ur Phencyclidine Scrn (NEGATIVE) Ur Amphetamine Screen (NEGATIVE) U Methamphetamines Scrn (NEGATIVE) Urine MDMA Screen (NEGATIVE) U Benzodiazepines Scrn (NEGATIVE) Urine Cocaine Screen (NEGATIVE) U Marijuana (THC) Screen (NEGATIVE) HIV-1 Antibody Non-reactive (NONREACTIVE) HIV-2 Antibody Non-reactive (NONREACTIVE) HIV P24 Antigen Non-reactive (NONREACTIVE) SARS-CoV-2 RNA (JENNIFER) Positive H (NEGATIVE) Blood Type Gel Antibody Screen 04/25/21 04/25/21 Range/Units 07:40 07:40 WBC (5.0-10.0) 10^3/uL RBC (4.2-5.4) 10^6/uL Hgb (12.0-16.0) g/dL Hct (37.0-47.0) % MCV (80-100) fL MCH (27.0-34.0) pg MCHC (33.0-35.0) g/dL Plt Count (150-450) 10^3/uL BUN (7-18) mg/dL Creatinine (0.55-1.02) mg/dL Est Cr Clr Drug Dosing Estimated GFR (MDRD) Uric Acid (2.6-6.0) mg/dL AST (15-37) U/L ALT (14-59) U/L Lactate Dehydrogenase (81-234) U/L Urine Color (YELLOW) Urine Appearance (CLEAR) Urine pH (5.0-9.0) Ur Specific [place] (1.005-1.030) Urine Protein (NEGATIVE) Urine Glucose (UA) (NEGATIVE) Urine Ketones (NEGATIVE) Urine Occult Blood (NEGATIVE) Urine Nitrite (NEGATIVE) Urine Bilirubin (NEGATIVE) Urine Urobilinogen (0.2-1.0) mg/dL Ur Leukocyte Esterase (NEGATIVE) Ur Random Creatinine 76.83 (No establ ref range) mg/dL U Random Total Protein 50.6 H (0.0-11.9) mg/dL Protein/Creatinin Ratio 658.6 H (<150.0) mg/g Urine Opiates Screen Negative (NEGATIVE) Ur Oxycodone Screen Negative (NEGATIVE) Urine Methadone Screen Negative (NEGATIVE) Ur Barbiturates Screen Negative (NEGATIVE) U Tricyclic Antidepress Negative (NEGATIVE) Ur Phencyclidine Scrn Negative (NEGATIVE) Ur Amphetamine Screen Positive H (NEGATIVE) U Methamphetamines Scrn Positive H (NEGATIVE) Urine MDMA Screen Positive H (NEGATIVE) U Benzodiazepines Scrn Negative (NEGATIVE) Urine Cocaine Screen Negative (NEGATIVE) U Marijuana (THC) Screen Positive H (NEGATIVE) HIV-1 Antibody (NONREACTIVE) HIV-2 Antibody (NONREACTIVE) HIV P24 Antigen (NONREACTIVE) SARS-CoV-2 RNA (JENNIFER) (NEGATIVE) Blood Type Gel Antibody Screen Med Orders - Current: Current Medications Acetaminophen (Acetaminophen 325 Mg Tab) 650 mg PO Q4H PRN PRN Reason: Pain (Mild 1-3) and fever Last Admin: 04/25/21 11:08 Dose: 650 mg Documented by: Benzocaine/Menthol (Benzocaine/Menthol 20%-0.5% [place] 78 Gm Cannister) 0 gm TOP Q4H PRN PRN Reason: Perineal comfort measures Carboprost Tromethamine (Carboprost Tromethamine 250 Mcg/1 Ml Amp) 250 mcg IM ASDIRECTED PRN PRN Reason: Excessive vaginal bleeding Docusate Sodium (Docusate Sodium 100 Mg Cap) 100 mg PO BID PRN PRN Reason: Constipation Ferrous Sulfate (Ferrous Sulfate 325 Mg Tab) 325 mg PO TIDMEALS [place] Last Admin: 04/25/21 18:08 Dose: 325 mg Documented by: Lactated Ringer's (Ringers, Lactated) 1,000 mls @ 125 mls/hr IV ASDIRECTED [facility] Last Admin: 04/25/21 07:50 Dose: 125 mls/hr Documented by: Oxytocin/Sodium Chloride (Pitocin In Ns 30 Unit/500 Ml) 30 unit in 500 mls @ 2 mls/hr IV TITRATE [facility]; Protocol Last Titration: 04/25/21 15:00 Dose: 0 munits/min, 0 mls/hr Documented by: Tranexamic Acid 1,000 mg/ (Sodium Chloride) 110 mls @ 660 mls/hr IV ONETIME PRN PRN Reason: Bleeding Ibuprofen (Ibuprofen 800 Mg Tab) 800 mg PO Q8H PRN PRN Reason: Cramping Last Admin: 04/25/21 11:09 Dose: 800 mg Documented by: Lidocaine HCl (Lidocaine 1% 30 Ml Sdv) 30 ml INJECT ASDIRECTED PRN PRN Reason: Perineal Repair Methylergonovine Maleate (Methylergonovine 0.2 Mg/1 Ml Amp) 0.2 mg IM ASDIRECTED PRN PRN Reason: Hemorrhage Misoprostol (Misoprostol 400 Mcg (4 X 100 Mcg Tab)) 800 mcg RECTAL ASDIRECTED PRN PRN Reason: Hemorrhage Misoprostol (Misoprostol 400 Mcg (4 X 100 Mcg Tab)) 1,000 mcg RECTAL ONETIME PRN PRN Reason: Hemorrhage Ondansetron HCl (Ondansetron 4 Mg/2 Ml Sdv) 4 mg IVPUSH Q4H PRN PRN Reason: Nausea/Vomiting Oxytocin (Oxytocin 10 Units/1 Ml Sdv) 10 unit IM ONETIME PRN PRN Reason: Bleeding Prenat Multivit/[place]/Iron/Folic Ac ( Multivitamin With Calcium/Folic Acid/Iron Tab) 1 each PO DAILY [facility], [facility] Last Admin: 04/25/21 17:07 Dose: Not Given Documented by: Simethicone (Simethicone 80 Mg Tab.Chew) 80 mg PO Q4H PRN PRN Reason: Gas Sodium Chloride (Sodium Chloride 0.9% 10 Ml Syringe) 10 ml FLUSH ASDIRECTED PRN PRN Reason: Keep Vein Open Zolpidem Tartrate (Zolpidem 5 Mg Tab) 5 mg PO BEDTIME PRN PRN Reason: Insomnia Discontinued Medications Acetaminophen (Acetaminophen 325 Mg Tab) 650 mg PO Q4H PRN PRN Reason: Pain (Mild 1-3) and fever Acetaminophen (Acetaminophen 325 Mg Tab) 650 mg PO Q6H PRN PRN Reason: Pain/Fever Carboprost Tromethamine (Carboprost Tromethamine 250 Mcg/1 Ml Amp) 250 mcg IM ASDIRECTED PRN PRN Reason: HEMORRHAGE Docusate Sodium (Docusate Sodium 100 Mg Cap) 100 mg PO BID PRN PRN Reason: Constipation Ferrous Sulfate (Ferrous Sulfate 325 Mg Tab) 325 mg PO WITHBREAKFAST [place] Lactated Ringer's (Ringers, Lactated) 1,000 mls @ 125 mls/hr IV BOLUS ONE Stop: 04/25/21 14:20 Last Admin: 04/25/21 05:50 Dose: 125 mls/hr Documented by: Tranexamic Acid 1,000 mg/ (Sodium Chloride) 110 mls @ 660 mls/hr IV ONETIME PRN PRN Reason: Bleeding Penicillin G Potassium 5 (millunits/ Sodium Chloride) 100 mls @ 200 mls/hr IV ONETIME ONE Stop: 04/25/21 08:57 Last Admin: 04/25/21 06:00 Dose: 200 mls/hr Documented by: Ibuprofen (Ibuprofen 800 Mg Tab) 800 mg PO Q8H PRN PRN Reason: Mild Pain or Fever Nalbuphine HCl (Nalbuphine 10 Mg/1 Ml Vial) Confirm Administered Dose 20 mg .ROUTE .STK-MED ONE Stop: 04/25/21 06:30 Last Admin: 04/25/21 09:02 Dose: Not Given Documented by: Nalbuphine HCl (Nalbuphine 10 Mg/1 Ml Vial) 20 mg IM ONETIME ONE Stop: 04/25/21 08:29 Last Admin: 04/25/21 06:31 Dose: 20 mg Documented by: Penicillin G Potassium (Penicillin G Potassium 5,000,000 Unit Vial) Confirm Administered Dose 5 millunits .ROUTE .STK-MED ONE Stop: 04/25/21 05:56 Last Admin: 04/25/21 09:02 Dose: Not Given Documented by: Prenat Multivit/Reservoir Engineer/Iron/Folic Ac ( Multivitamin With Calcium/Folic Acid/Iron Tab) 1 each PO DAILY [facility] Silver Nitrate (Silver Nitrate Applicator Each) Confirm Administered Dose 2 each .ROUTE .STK-MED ONE Stop: 04/25/21 08:26 Last Admin: 04/25/21 08:15 Dose: 2 each Documented by: Sodium Chloride (Sodium Chloride 0.9% 10 Ml Syringe) 10 ml FLUSH ASDIRECTED PRN PRN Reason: Keep Vein Open - Problem List Review Problem List Initiated/Reviewed/Updated: No - My Orders Last 24 Hours: My Active Orders 04/25/21 16:00 MISC TEST Routine <[place] - Last Filed: 04/26/21 10:14> - Patient Data Vitals - Most Recent: Last Vital Signs Temp 97.3 F 04/25/21 20:00 Pulse 62 04/25/21 20:00 Resp 20 04/25/21 20:00 BP 133/82 04/25/21 20:00 Pulse Ox 100 04/25/21 20:00 I&O - Last 24 Hours: Intake & Output 04/25/21 04/26/21 04/26/21 22:59 06:59 14:59 Intake Total 900 Balance 900 Lab Results Last 24 Hours: Laboratory Results - last 24 hr 04/26/21 Range/Units 06:00 WBC 6.8 (5.0-10.0) 10^3/uL RBC 3.49 L (4.2-5.4) 10^6/uL Hgb 10.0 L D (12.0-16.0) g/dL Hct 31.2 L (37.0-47.0) % MCV 89.4 (80-100) fL MCH 28.7 (27.0-34.0) pg MCHC 32.1 L (33.0-35.0) g/dL Plt Count 184 (150-450) 10^3/uL Med Orders - Current: Current Medications Acetaminophen (Acetaminophen 325 Mg Tab) 650 mg PO Q4H PRN PRN Reason: Pain (Mild 1-3) and fever Last Admin: 04/25/21 19:40 Dose: 650 mg Documented by: Benzocaine/Menthol (Benzocaine/Menthol 20%-0.5% [place] 78 Gm Cannister) 0 gm TOP Q4H PRN PRN Reason: Perineal comfort measures Last Admin: 04/25/21 19:42 Dose: 1 applic Documented by: Carboprost Tromethamine (Carboprost Tromethamine 250 Mcg/1 Ml Amp) 250 mcg IM ASDIRECTED PRN PRN Reason: Excessive vaginal bleeding Docusate Sodium (Docusate Sodium 100 Mg Cap) 100 mg PO BID PRN PRN Reason: Constipation Last Admin: 04/26/21 09:04 Dose: 100 mg Documented by: Ferrous Sulfate (Ferrous Sulfate 325 Mg Tab) 325 mg PO TIDMEALS [facility] Last Admin: 04/26/21 09:03 Dose: 325 mg Documented by: Lactated Ringer's (Ringers, Lactated) 1,000 mls @ 125 mls/hr IV ASDIRECTED [facility] Last Admin: 04/25/21 07:50 Dose: 125 mls/hr Documented by: Oxytocin/Sodium Chloride (Pitocin In Ns 30 Unit/500 Ml) 30 unit in 500 mls @ 2 mls/hr IV TITRATE [facility]; Protocol Last Titration: 04/25/21 15:00 Dose: 0 munits/min, 0 mls/hr Documented by: Tranexamic Acid 1,000 mg/ (Sodium Chloride) 110 mls @ 660 mls/hr IV ONETIME PRN PRN Reason: Bleeding Ibuprofen (Ibuprofen 800 Mg Tab) 800 mg PO Q8H PRN PRN Reason: Cramping Last Admin: 04/26/21 09:03 Dose: 800 mg Documented by: Lidocaine HCl (Lidocaine 1% 30 Ml Sdv) 30 ml INJECT ASDIRECTED PRN PRN Reason: Perineal Repair Methylergonovine Maleate (Methylergonovine 0.2 Mg/1 Ml Amp) 0.2 mg IM ASDIRECTED PRN PRN Reason: Hemorrhage Misoprostol (Misoprostol 400 Mcg (4 X 100 Mcg Tab)) 800 mcg RECTAL ASDIRECTED PRN PRN Reason: Hemorrhage Misoprostol (Misoprostol 400 Mcg (4 X 100 Mcg Tab)) 1,000 mcg RECTAL ONETIME PRN PRN Reason: Hemorrhage Ondansetron HCl (Ondansetron 4 Mg/2 Ml Sdv) 4 mg IVPUSH Q4H PRN PRN Reason: Nausea/Vomiting Oxytocin (Oxytocin 10 Units/1 Ml Sdv) 10 unit IM ONETIME PRN PRN Reason: Bleeding Prenat Multivit/[place]/Iron/Folic Ac ( Multivitamin With Calcium/Folic Acid/Iron Tab) 1 each PO DAILY [facility] Last Admin: 04/26/21 09:04 Dose: 1 each Documented by: Simethicone (Simethicone 80 Mg Tab.Chew) 80 mg PO Q4H PRN PRN Reason: Gas Sodium Chloride (Sodium Chloride 0.9% 10 Ml Syringe) 10 ml FLUSH ASDIRECTED PRN PRN Reason: Keep Vein Open Zolpidem Tartrate (Zolpidem 5 Mg Tab) 5 mg PO BEDTIME PRN PRN Reason: Insomnia Discontinued Medications Acetaminophen (Acetaminophen 325 Mg Tab) 650 mg PO Q4H PRN PRN Reason: Pain (Mild 1-3) and fever Acetaminophen (Acetaminophen 325 Mg Tab) 650 mg PO Q6H PRN PRN Reason: Pain/Fever Carboprost Tromethamine (Carboprost Tromethamine 250 Mcg/1 Ml Amp) 250 mcg IM ASDIRECTED PRN PRN Reason: HEMORRHAGE Docusate Sodium (Docusate Sodium 100 Mg Cap) 100 mg PO BID PRN PRN Reason: Constipation Ferrous Sulfate (Ferrous Sulfate 325 Mg Tab) 325 mg PO WITHBREAKFAST [place] Lactated Ringer's (Ringers, Lactated) 1,000 mls @ 125 mls/hr IV BOLUS ONE Stop: 04/25/21 14:20 Last Admin: 04/25/21 05:50 Dose: 125 mls/hr Documented by: Tranexamic Acid 1,000 mg/ (Sodium Chloride) 110 mls @ 660 mls/hr IV ONETIME PRN PRN Reason: Bleeding Penicillin G Potassium 5 (millunits/ Sodium Chloride) 100 mls @ 200 mls/hr IV ONETIME ONE Stop: 04/25/21 08:57 Last Admin: 04/25/21 06:00 Dose: 200 mls/hr Documented by: Ibuprofen (Ibuprofen 800 Mg Tab) 800 mg PO Q8H PRN PRN Reason: Mild Pain or Fever Nalbuphine HCl (Nalbuphine 10 Mg/1 Ml Vial) Confirm Administered Dose 20 mg .ROUTE .STK-MED ONE Stop: 04/25/21 06:30 Last Admin: 04/25/21 09:02 Dose: Not Given Documented by: Nalbuphine HCl (Nalbuphine 10 Mg/1 Ml Vial) 20 mg IM ONETIME ONE Stop: 04/25/21 08:29 Last Admin: 04/25/21 06:31 Dose: 20 mg Documented by: Penicillin G Potassium (Penicillin G Potassium 5,000,000 Unit Vial) Confirm Administered Dose 5 millunits .ROUTE .STK-MED ONE Stop: 04/25/21 05:56 Last Admin: 04/25/21 09:02 Dose: Not Given Documented by: Prenat Multivit/[place]/Iron/Folic Ac ( Multivitamin With Calcium/Folic Acid/Iron Tab) 1 each PO DAILY [facility] Silver Nitrate (Silver Nitrate Applicator Each) Confirm Administered Dose 2 each .ROUTE .STK-MED ONE Stop: 04/25/21 08:26 Last Admin: 04/25/21 08:15 Dose: 2 each Documented by: Sodium Chloride (Sodium Chloride 0.9% 10 Ml Syringe) 10 ml FLUSH ASDIRECTED PRN PRN Reason: Keep Vein Open - My Orders Last 24 Hours: My Active Orders 04/25/21 Lunch Regular Diet [DIET] 04/25/21 Dinner Regular Diet [DIET] 04/26/21 10:11 Ready for Discharge [RC] PER UNIT ROUTINE Attestation - Resident - Attestation Statement Attestation Statement: I saw and evaluated the patient. Discussed with resident and agree with residents findings and plan as documented in the residents note.
[2021-04-25] MEDS: Docusate Sodium 100 MG Cap PO PRN (19:42)
[2021-04-26] MEDS: Ibuprofen 800 MG Tab PO PRN (09:03)
[2021-04-26] MEDS: Ferrous Sulfate 325 MG Tab PO SCH (09:03)
[2021-04-26] MEDS: Docusate Sodium 100 MG Cap PO PRN (09:04)
[2021-04-26] MEDS: Prenatal Multivitamin with Calcium/Folic Acid/Iron Tab PO SCH (09:04)
--- NOTE | 2021-04-26 12:48 | PCM.PNPP ---
- General Info Date of Service: 04/26/21 (PPD # 1 S/P ) Functional Status: Reports: Pain Controlled, Tolerating Diet, Ambulating, Urinating - Review of Systems General: Reports: No Symptoms HEENT: Reports: No Symptoms Pulmonary: Reports: No Symptoms Cardiovascular: Reports: No Symptoms Gastrointestinal: Reports: No Symptoms Genitourinary: Reports: No Symptoms Musculoskeletal: Reports: No Symptoms Skin: Reports: No Symptoms Neurological: Reports: No Symptoms Psychiatric: Reports: No Symptoms - General Info Date of Service: 04/26/21 (PPD # 1 S/P ) - Patient Data Vital Signs - Most Recent: Last Vital Signs Temp 97.3 F 04/25/21 20:00 Pulse 62 04/25/21 20:00 Resp 20 04/25/21 20:00 BP 133/82 04/25/21 20:00 Pulse Ox 100 04/25/21 20:00 Weight - Most Recent: 130 lb I&O - Last 24 Hours: Intake & Output 04/25/21 04/26/21 04/26/21 22:59 06:59 14:59 Intake Total 900 Balance 900 Lab Results - Last 24 Hours: Laboratory Results - last 24 hr 04/26/21 Range/Units 06:00 WBC 6.8 (5.0-10.0) 10^3/uL RBC 3.49 L (4.2-5.4) 10^6/uL Hgb 10.0 L D (12.0-16.0) g/dL Hct 31.2 L (37.0-47.0) % MCV 89.4 (80-100) fL MCH 28.7 (27.0-34.0) pg MCHC 32.1 L (33.0-35.0) g/dL Plt Count 184 (150-450) 10^3/uL Med Orders - Current: Current Medications Acetaminophen (Acetaminophen 325 Mg Tab) 650 mg PO Q4H PRN PRN Reason: Pain (Mild 1-3) and fever Last Admin: 04/25/21 19:40 Dose: 650 mg Documented by: Benzocaine/Menthol (Benzocaine/Menthol 20%-0.5% Norris 78 Gm Cannister) 0 gm TOP Q4H PRN PRN Reason: Perineal comfort measures Last Admin: 04/25/21 19:42 Dose: 1 applic Documented by: Carboprost Tromethamine (Carboprost Tromethamine 250 Mcg/1 Ml Amp) 250 mcg IM ASDIRECTED PRN PRN Reason: Excessive vaginal bleeding Docusate Sodium (Docusate Sodium 100 Mg Cap) 100 mg PO BID PRN PRN Reason: Constipation Last Admin: 04/26/21 09:04 Dose: 100 mg Documented by: Ferrous Sulfate (Ferrous Sulfate 325 Mg Tab) 325 mg PO TIDMEALS COUNTS INCLUDE 234 BEDS AT THE [facility] Last Admin: 04/26/21 09:03 Dose: 325 mg Documented by: Lactated Ringer's (Ringers, Lactated) 1,000 mls @ 125 mls/hr IV ASDIRECTED [facility] Last Admin: 04/25/21 07:50 Dose: 125 mls/hr Documented by: Oxytocin/Sodium Chloride (Pitocin In Ns 30 Unit/500 Ml) 30 unit in 500 mls @ 2 mls/hr IV TITRATE COUNTS INCLUDE 234 BEDS AT THE [facility]; Protocol Last Titration: 04/25/21 15:00 Dose: 0 munits/min, 0 mls/hr Documented by: Tranexamic Acid 1,000 mg/ (Sodium Chloride) 110 mls @ 660 mls/hr IV ONETIME PRN PRN Reason: Bleeding Ibuprofen (Ibuprofen 800 Mg Tab) 800 mg PO Q8H PRN PRN Reason: Cramping Last Admin: 04/26/21 09:03 Dose: 800 mg Documented by: Lidocaine HCl (Lidocaine 1% 30 Ml Sdv) 30 ml INJECT ASDIRECTED PRN PRN Reason: Perineal Repair Methylergonovine Maleate (Methylergonovine 0.2 Mg/1 Ml Amp) 0.2 mg IM ASDIRECTED PRN PRN Reason: Hemorrhage Misoprostol (Misoprostol 400 Mcg (4 X 100 Mcg Tab)) 800 mcg RECTAL ASDIRECTED PRN PRN Reason: Hemorrhage Misoprostol (Misoprostol 400 Mcg (4 X 100 Mcg Tab)) 1,000 mcg RECTAL ONETIME PRN PRN Reason: Hemorrhage Ondansetron HCl (Ondansetron 4 Mg/2 Ml Sdv) 4 mg IVPUSH Q4H PRN PRN Reason: Nausea/Vomiting Oxytocin (Oxytocin 10 Units/1 Ml Sdv) 10 unit IM ONETIME PRN PRN Reason: Bleeding Prenat Multivit/Resource Coordinator/Iron/Folic Ac ( Multivitamin With Calcium/Folic Acid/Iron Tab) 1 each PO DAILY COUNTS INCLUDE 234 BEDS AT THE [facility] Last Admin: 04/26/21 09:04 Dose: 1 each Documented by: Simethicone (Simethicone 80 Mg Tab.Chew) 80 mg PO Q4H PRN PRN Reason: Gas Sodium Chloride (Sodium Chloride 0.9% 10 Ml Syringe) 10 ml FLUSH ASDIRECTED PRN PRN Reason: Keep Vein Open Zolpidem Tartrate (Zolpidem 5 Mg Tab) 5 mg PO BEDTIME PRN PRN Reason: Insomnia Discontinued Medications Acetaminophen (Acetaminophen 325 Mg Tab) 650 mg PO Q4H PRN PRN Reason: Pain (Mild 1-3) and fever Acetaminophen (Acetaminophen 325 Mg Tab) 650 mg PO Q6H PRN PRN Reason: Pain/Fever Carboprost Tromethamine (Carboprost Tromethamine 250 Mcg/1 Ml Amp) 250 mcg IM ASDIRECTED PRN PRN Reason: HEMORRHAGE Docusate Sodium (Docusate Sodium 100 Mg Cap) 100 mg PO BID PRN PRN Reason: Constipation Ferrous Sulfate (Ferrous Sulfate 325 Mg Tab) 325 mg PO WITHBREAKFAST COUNTS INCLUDE 234 BEDS AT THE [facility] Lactated Ringer's (Ringers, Lactated) 1,000 mls @ 125 mls/hr IV BOLUS ONE Stop: 04/25/21 14:20 Last Admin: 04/25/21 05:50 Dose: 125 mls/hr Documented by: Tranexamic Acid 1,000 mg/ (Sodium Chloride) 110 mls @ 660 mls/hr IV ONETIME PRN PRN Reason: Bleeding Penicillin G Potassium 5 (millunits/ Sodium Chloride) 100 mls @ 200 mls/hr IV ONETIME ONE Stop: 04/25/21 08:57 Last Admin: 04/25/21 06:00 Dose: 200 mls/hr Documented by: Ibuprofen (Ibuprofen 800 Mg Tab) 800 mg PO Q8H PRN PRN Reason: Mild Pain or Fever Nalbuphine HCl (Nalbuphine 10 Mg/1 Ml Vial) Confirm Administered Dose 20 mg .ROUTE .STK-MED ONE Stop: 04/25/21 06:30 Last Admin: 04/25/21 09:02 Dose: Not Given Documented by: Nalbuphine HCl (Nalbuphine 10 Mg/1 Ml Vial) 20 mg IM ONETIME ONE Stop: 04/25/21 08:29 Last Admin: 04/25/21 06:31 Dose: 20 mg Documented by: Penicillin G Potassium (Penicillin G Potassium 5,000,000 Unit Vial) Confirm Administered Dose 5 millunits .ROUTE .STK-MED ONE Stop: 04/25/21 05:56 Last Admin: 04/25/21 09:02 Dose: Not Given Documented by: Prenat Multivit/Resource Coordinator/Iron/Folic Ac ( Multivitamin With Calcium/Folic Acid/Iron Tab) 1 each PO DAILY [facility] Silver Nitrate (Silver Nitrate Applicator Each) Confirm Administered Dose 2 each .ROUTE .STK-MED ONE Stop: 04/25/21 08:26 Last Admin: 04/25/21 08:15 Dose: 2 each Documented by: Sodium Chloride (Sodium Chloride 0.9% 10 Ml Syringe) 10 ml FLUSH ASDIRECTED PRN PRN Reason: Keep Vein Open - Infant Interaction Disposition, : NICU in [place] Support Person: Significant Other - Recovery Exam Fundal Tone: Firm Fundal Level: At Umbilicus Fundal Placement: Midline Lochia Amount: Small Lochia Color: Rubra/Red Perineum Description: Intact, Minimal Bruising/Swelling Episiotomy/Laceration: Approximated Bladder Status: Nonpalpable Urinary Elimination: Voided - Exam General: Alert, Oriented, Cooperative, No Acute Distress HEENT: Pupils Equal, Pupils Reactive, EOMI, Mucous Membr. Moist/Miles Neck: Supple Lungs: Clear to Auscultation, Normal Respiratory Effort Cardiovascular: Regular Rate, Regular Rhythm, No Murmurs GI/Abdominal Exam: Normal Bowel Sounds, Soft, Non-Tender Extremities: Normal Inspection, Normal Range of Motion, Non-Tender, No Pedal Edema, Normal Capillary Refill Skin: Warm, Dry, Intact Wound/Incisions: Healing Well Neurological: No New Focal Deficit, Normal Gait, Normal Speech, Normal Tone Psy/Mental Status: Alert, Normal Affect, Normal Mood - Problem List Review Problem List Initiated/Reviewed/Updated: Yes - My Orders Last 24 Hours: My Active Orders 04/25/21 Lunch Regular Diet [DIET] 04/25/21 Dinner Regular Diet [DIET] 04/26/21 10:11 Ready for Discharge [RC] PER UNIT ROUTINE - Assessment Assessment:: PPD # 1 S/P No Care Covid Positive Doing well - Plan Plan:: Discharge to home Follow-up with [facility] [place] for evaluation Ibuprofen 800 mg 1 tab tid po prn pain
--- NOTE | 2021-04-26 12:52 | PCM.DCSUM1 ---
<Mechelle Stover - Last Filed: 04/26/21 12:46> Discharge Summary - Hospital Course Free Text/Narrative:: ADMITTING DIAGNOSIS 1. Intrauterine reported 36w2d, exam concerning for Gestational age <35 weeks or IGUR. 2. Active labor 3. No care 4. History of Pre-eclampsia. 5. Active labor on admission 6. Group B streptococcus unknown with hx of positive, Penicillin running 7. G3 P 2-0-0-2 DISCHARGE DIABNOSIS: 1. Intrauterine reported 36w2d, exam concerning for Gestational age <35 weeks or IGUR. Delivered 2. labor 3. No care 4. UDS positive for THC/ Methamphetamine&Amphetamine/ MDMA 5. Group B streptococcus unknown with hx of positive, 1 dose Penicillin given 6. History of Pre-eclampsia. 7. Active labor on admission 8. Group B streptococcus unknown with hx of positive 9. G3 P 3-0-0-3 BREIF HISTORY Patient is a 25yo with no care, hx of pre- eclampsia, and history of THC and methamphetamine use in . She presented in active labor around 5:00am 04/25/21. The patient was found to be COVID positive and moved to negative pressure room. Penicillin was being administered for unknown GBS status. Nubain 20mg administered. AROM at 7:35AM for small amount of clear fluid. She rapidly reached complete dilation and began pushing at 08:06am. Delivered female infant in BILLY/right shoulder anterior position at 8:12AM. Cord double clamped and cut by Dr. Whittaker, infant brought immediately to warmer. Vaginal mucosa inspected and a 2cm first degree right mohan-urethral laceration identified. Cauterized with two silver nitrate avani lications. Female . APGARs 8 / 9. Weight 2100g / 4lb 11oz LABORATORY: Hemoglobin 13.2 on admission, 10.7 on day of discharge. UDS positive for THC/ Methamphetamine&Amphetamine/ MDMA. Confirmatory testing pending. Syphilis, Hepatitis B & C, HIV pending Cord sample send for Drug exposure testing HOSPTIAL COURSE: Patient recovered from delivery with few clots, none larger than a quarter. She is ambulating in the room, having flatus. No bowel movement at this time, she is making urine. Post- depression screening score high at 14. She will follow up with Primary Care Provider. PHYSICAL EXAMINATION: VITALS: 97.3F, HR 62, BP 113/82, RR 20, 100% on RA HEART: RRR without murmur LUNGS: Clear to auscultation bilaterally, no rhonchi or wheezing ABDOMEN: Soft, non tender. Fundus at umbilicus EXTREMITIES: No edema or deformity. DISPOSITION: Home MEDICATIONS: Ibuprofen 800mg three times a day as needed. FOLLOW-UP: She is encouraged to be seen at [facility] for post follow up. INSTRUCTIONS: Take Ibuprofen up to three time a day as needed. Drink 8-10 glasses of water a day to prevent blood clots. Follow up with [facility] for further information on Baby Girl Mechelle Stover MD PGY3 Diagnosis: Stroke: No - Discharge Data Discharge Date: 04/26/21 Discharge Disposition: Home, Self-Care 01 Condition: Good - Referral to [facility] Primary Care Physician: John Whittaker MD - Patient Instructions Diet: Regular Diet as Tolerated, Drink 8-10+ Glasses/Day Activity: No Strenuous Activities, Rest and Relax Today Showering/Bathing: May Shower Notify Provider of: Fever, Increased Pain, Swelling and Redness, Drainage, Nausea and/or Vomiting Other/Special Instructions: Continue to take vitamins and iron pills for the next 3 months. After you have been home for two weeks, go to [facility] to have a follow up appointment. If you become again, it is very important to be seen multiple times during the to make sure you and baby are doing okay. - Discharge Plan Home Medications: Home Meds #103/Iron Fumarate/Fa [ ] 1 tab PO DAILY 05/24/19 [History] Acetaminophen [Tylenol] 650 mg PO Q4H PRN tablet 03/30/20 [Rx] Docusate Sodium [Colace] 100 mg PO BID PRN cap 03/30/20 [Rx] Ferrous Sulfate 325 mg PO WITHBREAKFAST tablet 03/30/20 [Rx] Ibuprofen [Motrin] 800 mg PO Q8H PRN tablet 03/30/20 [Rx] - Discharge Summary/Plan Comment DC Time >30 min.: No Total # of Minutes for Discharge Time: 30 - Patient Data Vitals - Most Recent: Last Vital Signs Temp 97.3 F 04/25/21 20:00 Pulse 62 04/25/21 20:00 Resp 20 04/25/21 20:00 BP 133/82 04/25/21 20:00 Pulse Ox 100 04/25/21 20:00 Weight - Most Recent: 130 lb I&O - Last 24 hours: Intake & Output 04/25/21 04/26/21 04/26/21 22:59 06:59 14:59 Intake Total 900 Balance 900 Lab Results - Last 24 hrs: Laboratory Results - last 24 hr 04/26/21 Range/Units 06:00 WBC 6.8 (5.0-10.0) 10^3/uL RBC 3.49 L (4.2-5.4) 10^6/uL Hgb 10.0 L D (12.0-16.0) g/dL Hct 31.2 L (37.0-47.0) % MCV 89.4 (80-100) fL MCH 28.7 (27.0-34.0) pg MCHC 32.1 L (33.0-35.0) g/dL Plt Count 184 (150-450) 10^3/uL Med Orders - Current: Current Medications Acetaminophen (Acetaminophen 325 Mg Tab) 650 mg PO Q4H PRN PRN Reason: Pain (Mild 1-3) and fever Last Admin: 04/25/21 19:40 Dose: 650 mg Documented by: Benzocaine/Menthol (Benzocaine/Menthol 20%-0.5% Mason 78 Gm Cannister) 0 gm TOP Q4H PRN PRN Reason: Perineal comfort measures Last Admin: 04/25/21 19:42 Dose: 1 applic Documented by: Carboprost Tromethamine (Carboprost Tromethamine 250 Mcg/1 Ml Amp) 250 mcg IM ASDIRECTED PRN PRN Reason: Excessive vaginal bleeding Docusate Sodium (Docusate Sodium 100 Mg Cap) 100 mg PO BID PRN PRN Reason: Constipation Last Admin: 04/26/21 09:04 Dose: 100 mg Documented by: Ferrous Sulfate (Ferrous Sulfate 325 Mg Tab) 325 mg PO TIDMEALS [facility] Last Admin: 04/26/21 09:03 Dose: 325 mg Documented by: Lactated Ringer's (Ringers, Lactated) 1,000 mls @ 125 mls/hr IV ASDIRECTED [facility] Last Admin: 04/25/21 07:50 Dose: 125 mls/hr Documented by: Oxytocin/Sodium Chloride (Pitocin In Ns 30 Unit/500 Ml) 30 unit in 500 mls @ 2 mls/hr IV TITRATE [facility]; Protocol Last Titration: 04/25/21 15:00 Dose: 0 munits/min, 0 mls/hr Documented by: Tranexamic Acid 1,000 mg/ (Sodium Chloride) 110 mls @ 660 mls/hr IV ONETIME PRN PRN Reason: Bleeding Ibuprofen (Ibuprofen 800 Mg Tab) 800 mg PO Q8H PRN PRN Reason: Cramping Last Admin: 04/26/21 09:03 Dose: 800 mg Documented by: Lidocaine HCl (Lidocaine 1% 30 Ml Sdv) 30 ml INJECT ASDIRECTED PRN PRN Reason: Perineal Repair Methylergonovine Maleate (Methylergonovine 0.2 Mg/1 Ml Amp) 0.2 mg IM ASDIRECTED PRN PRN Reason: Hemorrhage Misoprostol (Misoprostol 400 Mcg (4 X 100 Mcg Tab)) 800 mcg RECTAL ASDIRECTED PRN PRN Reason: Hemorrhage Misoprostol (Misoprostol 400 Mcg (4 X 100 Mcg Tab)) 1,000 mcg RECTAL ONETIME PRN PRN Reason: Hemorrhage Ondansetron HCl (Ondansetron 4 Mg/2 Ml Sdv) 4 mg IVPUSH Q4H PRN PRN Reason: Nausea/Vomiting Oxytocin (Oxytocin 10 Units/1 Ml Sdv) 10 unit IM ONETIME PRN PRN Reason: Bleeding Prenat Multivit/[place]/Iron/Folic Ac ( Multivitamin With Calcium/Folic Acid/Iron Tab) 1 each PO DAILY [facility] Last Admin: 04/26/21 09:04 Dose: 1 each Documented by: Simethicone (Simethicone 80 Mg Tab.Chew) 80 mg PO Q4H PRN PRN Reason: Gas Sodium Chloride (Sodium Chloride 0.9% 10 Ml Syringe) 10 ml FLUSH ASDIRECTED PRN PRN Reason: Keep Vein Open Zolpidem Tartrate (Zolpidem 5 Mg Tab) 5 mg PO BEDTIME PRN PRN Reason: Insomnia Discontinued Medications Acetaminophen (Acetaminophen 325 Mg Tab) 650 mg PO Q4H PRN PRN Reason: Pain (Mild 1-3) and fever Acetaminophen (Acetaminophen 325 Mg Tab) 650 mg PO Q6H PRN PRN Reason: Pain/Fever Carboprost Tromethamine (Carboprost Tromethamine 250 Mcg/1 Ml Amp) 250 mcg IM ASDIRECTED PRN PRN Reason: HEMORRHAGE Docusate Sodium (Docusate Sodium 100 Mg Cap) 100 mg PO BID PRN PRN Reason: Constipation Ferrous Sulfate (Ferrous Sulfate 325 Mg Tab) 325 mg PO WITHBREAKFAST [facility] Lactated Ringer's (Ringers, Lactated) 1,000 mls @ 125 mls/hr IV BOLUS ONE Stop: 04/25/21 14:20 Last Admin: 04/25/21 05:50 Dose: 125 mls/hr Documented by: Tranexamic Acid 1,000 mg/ (Sodium Chloride) 110 mls @ 660 mls/hr IV ONETIME PRN PRN Reason: Bleeding Penicillin G Potassium 5 (millunits/ Sodium Chloride) 100 mls @ 200 mls/hr IV ONETIME ONE Stop: 04/25/21 08:57 Last Admin: 04/25/21 06:00 Dose: 200 mls/hr Documented by: Ibuprofen (Ibuprofen 800 Mg Tab) 800 mg PO Q8H PRN PRN Reason: Mild Pain or Fever Nalbuphine HCl (Nalbuphine 10 Mg/1 Ml Vial) Confirm Administered Dose 20 mg .ROUTE .STK-MED ONE Stop: 04/25/21 06:30 Last Admin: 04/25/21 09:02 Dose: Not Given Documented by: Nalbuphine HCl (Nalbuphine 10 Mg/1 Ml Vial) 20 mg IM ONETIME ONE Stop: 04/25/21 08:29 Last Admin: 04/25/21 06:31 Dose: 20 mg Documented by: Penicillin G Potassium (Penicillin G Potassium 5,000,000 Unit Vial) Confirm Administered Dose 5 millunits .ROUTE .STK-MED ONE Stop: 04/25/21 05:56 Last Admin: 04/25/21 09:02 Dose: Not Given Documented by: Prenat Multivit/Care Advocate/Iron/Folic Ac ( Multivitamin With Calcium/Folic Acid/Iron Tab) 1 each PO DAILY [facility] Silver Nitrate (Silver Nitrate Applicator Each) Confirm Administered Dose 2 each .ROUTE .STK-MED ONE Stop: 04/25/21 08:26 Last Admin: 04/25/21 08:15 Dose: 2 each Documented by: Sodium Chloride (Sodium Chloride 0.9% 10 Ml Syringe) 10 ml FLUSH ASDIRECTED PRN PRN Reason: Keep Vein Open <John Whittaker - Last Filed: 04/26/21 13:02> Discharge Summary - Referral to Home Health Primary Care Physician: John Whittaker MD - Patient Data Vitals - Most Recent: Last Vital Signs Temp 97.3 F 04/25/21 20:00 Pulse 62 04/25/21 20:00 Resp 20 04/25/21 20:00 BP 133/82 04/25/21 20:00 Pulse Ox 100 04/25/21 20:00 I&O - Last 24 hours: Intake & Output 04/25/21 04/26/21 04/26/21 22:59 06:59 14:59 Intake Total 900 Balance 900 Lab Results - Last 24 hrs: Laboratory Results - last 24 hr 04/26/21 Range/Units 06:00 WBC 6.8 (5.0-10.0) 10^3/uL RBC 3.49 L (4.2-5.4) 10^6/uL Hgb 10.0 L D (12.0-16.0) g/dL Hct 31.2 L (37.0-47.0) % MCV 89.4 (80-100) fL MCH 28.7 (27.0-34.0) pg MCHC 32.1 L (33.0-35.0) g/dL Plt Count 184 (150-450) 10^3/uL Med Orders - Current: Current Medications Acetaminophen (Acetaminophen 325 Mg Tab) 650 mg PO Q4H PRN PRN Reason: Pain (Mild 1-3) and fever Last Admin: 04/25/21 19:40 Dose: 650 mg Documented by: Benzocaine/Menthol (Benzocaine/Menthol 20%-0.5% Mason 78 Gm Cannister) 0 gm TOP Q4H PRN PRN Reason: Perineal comfort measures Last Admin: 04/25/21 19:42 Dose: 1 applic Documented by: Carboprost Tromethamine (Carboprost Tromethamine 250 Mcg/1 Ml Amp) 250 mcg IM ASDIRECTED PRN PRN Reason: Excessive vaginal bleeding Docusate Sodium (Docusate Sodium 100 Mg Cap) 100 mg PO BID PRN PRN Reason: Constipation Last Admin: 04/26/21 09:04 Dose: 100 mg Documented by: Ferrous Sulfate (Ferrous Sulfate 325 Mg Tab) 325 mg PO TIDMEALS [facility] Last Admin: 04/26/21 09:03 Dose: 325 mg Documented by: Lactated Ringer's (Ringers, Lactated) 1,000 mls @ 125 mls/hr IV ASDIRECTED [facility] Last Admin: 04/25/21 07:50 Dose: 125 mls/hr Documented by: Oxytocin/Sodium Chloride (Pitocin In Ns 30 Unit/500 Ml) 30 unit in 500 mls @ 2 mls/hr IV TITRATE [facility]; Protocol Last Titration: 04/25/21 15:00 Dose: 0 munits/min, 0 mls/hr Documented by: Tranexamic Acid 1,000 mg/ (Sodium Chloride) 110 mls @ 660 mls/hr IV ONETIME PRN PRN Reason: Bleeding Ibuprofen (Ibuprofen 800 Mg Tab) 800 mg PO Q8H PRN PRN Reason: Cramping Last Admin: 04/26/21 09:03 Dose: 800 mg Documented by: Lidocaine HCl (Lidocaine 1% 30 Ml Sdv) 30 ml INJECT ASDIRECTED PRN PRN Reason: Perineal Repair Methylergonovine Maleate (Methylergonovine 0.2 Mg/1 Ml Amp) 0.2 mg IM ASDIRECTED PRN PRN Reason: Hemorrhage Misoprostol (Misoprostol 400 Mcg (4 X 100 Mcg Tab)) 800 mcg RECTAL ASDIRECTED PRN PRN Reason: Hemorrhage Misoprostol (Misoprostol 400 Mcg (4 X 100 Mcg Tab)) 1,000 mcg RECTAL ONETIME PRN PRN Reason: Hemorrhage Ondansetron HCl (Ondansetron 4 Mg/2 Ml Sdv) 4 mg IVPUSH Q4H PRN PRN Reason: Nausea/Vomiting Oxytocin (Oxytocin 10 Units/1 Ml Sdv) 10 unit IM ONETIME PRN PRN Reason: Bleeding Prenat Multivit/Care Advocate/Iron/Folic Ac ( Multivitamin With Calcium/Folic Acid/Iron Tab) 1 each PO DAILY [facility] Last Admin: 04/26/21 09:04 Dose: 1 each Documented by: Simethicone (Simethicone 80 Mg Tab.Chew) 80 mg PO Q4H PRN PRN Reason: Gas Sodium Chloride (Sodium Chloride 0.9% 10 Ml Syringe) 10 ml FLUSH ASDIRECTED PRN PRN Reason: Keep Vein Open Zolpidem Tartrate (Zolpidem 5 Mg Tab) 5 mg PO BEDTIME PRN PRN Reason: Insomnia Discontinued Medications Acetaminophen (Acetaminophen 325 Mg Tab) 650 mg PO Q4H PRN PRN Reason: Pain (Mild 1-3) and fever Acetaminophen (Acetaminophen 325 Mg Tab) 650 mg PO Q6H PRN PRN Reason: Pain/Fever Carboprost Tromethamine (Carboprost Tromethamine 250 Mcg/1 Ml Amp) 250 mcg IM ASDIRECTED PRN PRN Reason: HEMORRHAGE Docusate Sodium (Docusate Sodium 100 Mg Cap) 100 mg PO BID PRN PRN Reason: Constipation Ferrous Sulfate (Ferrous Sulfate 325 Mg Tab) 325 mg PO WITHBREAKFAST [facility] Lactated Ringer's (Ringers, Lactated) 1,000 mls @ 125 mls/hr IV BOLUS ONE Stop: 04/25/21 14:20 Last Admin: 04/25/21 05:50 Dose: 125 mls/hr Documented by: Tranexamic Acid 1,000 mg/ (Sodium Chloride) 110 mls @ 660 mls/hr IV ONETIME PRN PRN Reason: Bleeding Penicillin G Potassium 5 (millunits/ Sodium Chloride) 100 mls @ 200 mls/hr IV ONETIME ONE Stop: 04/25/21 08:57 Last Admin: 04/25/21 06:00 Dose: 200 mls/hr Documented by: Ibuprofen (Ibuprofen 800 Mg Tab) 800 mg PO Q8H PRN PRN Reason: Mild Pain or Fever Nalbuphine HCl (Nalbuphine 10 Mg/1 Ml Vial) Confirm Administered Dose 20 mg .ROUTE .STK-MED ONE Stop: 04/25/21 06:30 Last Admin: 04/25/21 09:02 Dose: Not Given Documented by: Nalbuphine HCl (Nalbuphine 10 Mg/1 Ml Vial) 20 mg IM ONETIME ONE Stop: 04/25/21 08:29 Last Admin: 04/25/21 06:31 Dose: 20 mg Documented by: Penicillin G Potassium (Penicillin G Potassium 5,000,000 Unit Vial) Confirm Administered Dose 5 millunits .ROUTE .STK-MED ONE Stop: 04/25/21 05:56 Last Admin: 04/25/21 09:02 Dose: Not Given Documented by: Prenat Multivit/Care Advocate/Iron/Folic Ac ( Multivitamin With Calcium/Folic Acid/Iron Tab) 1 each PO DAILY [facility] Silver Nitrate (Silver Nitrate Applicator Each) Confirm Administered Dose 2 each .ROUTE .STK-MED ONE Stop: 04/25/21 08:26 Last Admin: 04/25/21 08:15 Dose: 2 each Documented by: Sodium Chloride (Sodium Chloride 0.9% 10 Ml Syringe) 10 ml FLUSH ASDIRECTED PRN PRN Reason: Keep Vein Open Attestation - Resident - Attestation Statement Attestation Statement: I saw and evaluated the patient. Discussed with resident and agree with residents findings and plan as documented in the residents note.
== END 2021-04-26 14:30 | disposition home or self-care (01) | DRG 805 ==
LOC: DL.OBCHECK 05:35 → DL.OB 06:09 → OBSVTOIN 08:12 → DL.OB 08:14
PROVIDERS: ADMIT Obstetrics & Gynecology; ATTEND Obstetrics & Gynecology
PROC: 10E0XZZ Delivery of Products of Conception, External Approach (ICD-10-PCS; principal; 2021-04-25)
PROC: 10907ZC Drainage of Amniotic Fluid, Therapeutic from Products of Conception, Via Natural or Artificial Opening (ICD-10-PCS; 2021-04-25)
PROC: 0UQMXZZ Repair Vulva, External Approach (ICD-10-PCS; 2021-04-25)
PROC: 3E02340 Introduction of Influenza Vaccine into Muscle, Percutaneous Approach (ICD-10-PCS; 2021-04-26)
DX: O36.5930 Maternal care for other known or suspected poor fetal growth, third trimester, not applicable or unspecified (principal); U07.1 COVID-19; Z37.0 Single live birth; O60.14X0 Preterm labor third trimester with preterm delivery third trimester, not applicable or unspecified; O98.52 Other viral diseases complicating childbirth; O99.324 Drug use complicating childbirth; O71.82 Other specified trauma to perineum and vulva; F12.90 Cannabis use, unspecified, uncomplicated; F15.90 Other stimulant use, unspecified, uncomplicated; O99.334 Smoking (tobacco) complicating childbirth; F17.210 Nicotine dependence, cigarettes, uncomplicated; Z3A.36 36 weeks gestation of pregnancy; Z23 Encounter for immunization
CPT/HCPCS: 36415; 59409; 76815; 80305-QW; 80307; 81003; 82565; 82570; 83615; 84156; 84450; 84460; 84520; 84550; 85027; 86592; 86762; 86803; 86850; 86900; 86901; 87077; 87081; 87186; 87340; 87389; A9270-GY; J2300; J2540; J2590; J7120; U0002

== ENCOUNTER 2022-11-02 08:21 | Inpatient (IN) | payer OTHER ==
[2022-11-02] MEDS ORDERED: Lidocaine 1% 30 ML SDV INJECT PRN (08:53)
[2022-11-02] MEDS ORDERED: Misoprostol 400 MCG (4 X 100 MCG TAB) RECTAL PRN (08:53)
[2022-11-02] MEDS ORDERED: Acetaminophen 325 MG Tab PO PRN (08:53)
[2022-11-02] MEDS ORDERED: Sodium Chloride 0.9% 10 ML Syringe FLUSH PRN (08:53)
[2022-11-02] MEDS ORDERED: Tranexamic Acid 1,000 MG in Sodium Chloride 0.9% 100 ML IV PRN (08:53)
[2022-11-02] MEDS ORDERED: Methylergonovine 0.2 MG/1 ML Amp IM PRN (08:53)
[2022-11-02] MEDS ORDERED: Carboprost Tromethamine 250 MCG/1 ML Amp IM PRN (08:53)
[2022-11-02] MEDS ORDERED: Ondansetron 4 MG/2 ML SDV IVPUSH PRN (08:53)
[2022-11-02] MEDS ORDERED: Lactated Ringers 1,000 ML IV ONE (09:00)
[2022-11-02] MEDS ORDERED: Lactated Ringers 1,000 ML IV SCH (09:00)
[2022-11-02] MEDS ORDERED: Penicillin G Potassium 5,000,000 Unit Vial ONE (09:00)
[2022-11-02] MEDS ORDERED: fentaNYL 100 MCG/2 ML SDV ONE (09:07)
[2022-11-02] MEDS ORDERED: Bupivacaine 0.25% 10 ML SDV ONE (09:07)
[2022-11-02] MEDS ORDERED: Phenylephrine HCl In 0.9% NaCl 1 MG/10 ML Syringe IVPUSH PRN (09:26)
[2022-11-02] MEDS ORDERED: ePHEDrine 50 MG/ML SDV IVPUSH PRN (09:26)
[2022-11-02] MEDS ORDERED: Ropivacaine 200 MG in Premix Bag 1 BAG EPIDUR SCH (09:30)
[2022-11-02] MEDS ORDERED: Oxytocin/Normal Saline 30 UNIT/500 ML BAG IV SCH (10:00)
[2022-11-02] MEDS ORDERED: Penicillin G Potassium 5 MILLUNITS in Sodium Chloride 0.9% 100 ML IV ONE (10:00)
[2022-11-02] MEDS ORDERED: Penicillin G Potassium 3 MILLUNITS in Sodium Chloride 0.9% 100 ML IV SCH (13:00)
[2022-11-02] MEDS ORDERED: Simethicone 80 MG Tab.Chew PO PRN (14:02)
[2022-11-02] MEDS ORDERED: Benzocaine/Menthol 20%-0.5% Spray 78 GM Cannister TOP PRN (14:02)
[2022-11-02] MEDS ORDERED: Oxytocin 10 Units/1 ML SDV IM PRN (14:02)
[2022-11-02] MEDS: Docusate Sodium 100 MG Cap PO PRN (20:54)
[2022-11-02] MEDS: metroNIDAZOLE 250 MG Tab PO SCH (20:54)
[2022-11-02] MEDS: Acetaminophen 325 MG Tab PO PRN (22:39)
[2022-11-03 06:24] LABS: HEMATOCRIT 28.6 % (37.0-47.0); HEMOGLOBIN 9.1 g/dL (12.0-16.0); MEAN CORPUSCULAR HEMOGLOBIN 27.4 pg (27.0-34.0); MEAN CORPUSCULAR HGB CONC 31.8 g/dL (33.0-35.0); MEAN CORPUSCULAR VOLUME 86.1 fL (80-100); RED BLOOD CELL COUNT 3.32 10^6/uL (4.2-5.4); WHITE BLOOD CELL COUNT,WBC 10.5 10^3/uL (5.0-10.0)
[2022-11-03] MEDS: metroNIDAZOLE 250 MG Tab PO SCH ×2 (10:04→20:44)
[2022-11-03] MEDS: Prenatal Multivitamin with Calcium/Folic Acid/Iron Tab PO SCH (10:05)
[2022-11-03] MEDS: Ibuprofen 800 MG Tab PO PRN ×2 (10:05→20:44)
[2022-11-03] MEDS: Docusate Sodium 100 MG Cap PO PRN ×2 (10:05→20:44)
[2022-11-04] MEDS: Acetaminophen 325 MG Tab PO PRN (05:04)
[2022-11-04] MEDS: Prenatal Multivitamin with Calcium/Folic Acid/Iron Tab PO SCH (08:33)
[2022-11-04] MEDS: metroNIDAZOLE 250 MG Tab PO SCH (08:33)
[2022-11-04] MEDS: Docusate Sodium 100 MG Cap PO PRN (08:33)
[2022-11-04] MEDS: Ibuprofen 800 MG Tab PO PRN (08:34)
== END 2022-11-04 09:30 | disposition home or self-care (01) | DRG 806 ==
LOC: DL.OBCHECK 08:21 → DL.OB 08:58 → OBSVTOIN 13:29
PROVIDERS: ADMIT Family Medicine; ATTEND Family Medicine
PROC: 10E0XZZ Delivery of Products of Conception, External Approach (ICD-10-PCS; principal; 2022-11-02)
PROC: 10907ZC Drainage of Amniotic Fluid, Therapeutic from Products of Conception, Via Natural or Artificial Opening (ICD-10-PCS; 2022-11-02)
PROC: 3E0R3BZ Introduction of Anesthetic Agent into Spinal Canal, Percutaneous Approach (ICD-10-PCS; 2022-11-02)
PROC: 00HU33Z Insertion of Infusion Device into Spinal Canal, Percutaneous Approach (ICD-10-PCS; 2022-11-02)
DX: O99.02 Anemia complicating childbirth (principal); O98.32 Other infections with a predominantly sexual mode of transmission complicating childbirth; Z37.0 Single live birth; D64.9 Anemia, unspecified; Z3A.37 37 weeks gestation of pregnancy; A59.01 Trichomonal vulvovaginitis
CPT/HCPCS: 01967; 36415; 59409; 85027; A9270-GY; J2540; J2590; J2795; J7120